=== PATIENT | female | born 1935 | race Caucasian/White ===

== ENCOUNTER 2016-06-26 12:45 | Day surgery (SDC) | payer MEDICARE, OTHER ==
[2016-06-26] MEDS ORDERED: LACTATED RINGERS 1,000 ML IV ONE ×2 (13:25→17:06)
[2016-06-26] MEDS ORDERED: fentaNYL 250 MCG/5 ML VIAL IVP ONE (16:48)
[2016-06-26] MEDS ORDERED: MIDAZOLAM 2 MG/2 ML VIAL IVP ONE (16:48)
== END 2016-06-26 12:46 | disposition home or self-care (01) ==
PROC: 0DJD8ZZ Inspection of Lower Intestinal Tract, Via Natural or Artificial Opening Endoscopic (ICD-10-PCS; principal; 2016-06-26 13:45)
DX: R19.4 Change in bowel habit (principal); K59.00 Constipation, unspecified; K64.8 Other hemorrhoids; I10 Essential (primary) hypertension; Z88.0 Allergy status to penicillin; Z88.2 Allergy status to sulfonamides; Z87.891 Personal history of nicotine dependence; Z90.710 Acquired absence of both cervix and uterus; Z82.5 Family history of asthma and other chronic lower respiratory diseases; Z80.0 Family history of malignant neoplasm of digestive organs; Z82.49 Family history of ischemic heart disease and other diseases of the circulatory system
CPT/HCPCS: 45378; J3010; J7120

== ENCOUNTER 2016-09-07 08:00 | Outpatient (CLI) | payer MEDICARE, OTHER ==
[2016-09-13 09:56] LABS: TEST RESULT REPORT (())
== END 2016-09-07 08:01 | disposition home or self-care (01) ==
LOC: LAB.R 08:00
PROVIDERS: ATTEND Internal Medicine
DX: R19.8 Other specified symptoms and signs involving the digestive system and abdomen (principal)
CPT/HCPCS: 81599; 83630; 87045; 87046; 87177; 87209; 87493

== ENCOUNTER 2016-10-21 08:00 | Outpatient (CLI) | payer MEDICARE, OTHER ==
[2016-10-26 07:51] LABS: TEST RESULT REPORT (())
[2016-10-27 09:51] LABS: TEST RESULT REPORT (())
== END 2016-10-21 08:01 | disposition home or self-care (01) ==
LOC: LAB.R 08:00
PROVIDERS: ATTEND Internal Medicine
DX: R19.7 Diarrhea, unspecified (principal)
CPT/HCPCS: 81599; 87045; 87046; 87493

== ENCOUNTER 2016-11-28 08:24 | Outpatient (CLI) | payer MEDICARE, OTHER ==
--- NOTE | 2016-11-29 12:06 | Mammography Report ---
DIGITAL SCREENING MAMMOGRAM: 11/28/2016 COMPARISON: 11/24/2015, 10/22/2014, 10/16/2013, 08/21/2012, 08/17/2011, 07/27/2011, 06/23/2010, 06/09, 06/21/2008, 06/13/2007. TECHNIQUE: Bilateral digital CC and MLO projections. FINDINGS: There are scattered fibroglandular densities. Stable benign calcifications. No dominant mass, architectural distortion, skin thickening, suspicious new microcalcifications or significant in terval change. IMPRESSION: NEGATIVE, BI-RADS 1. SUGGEST RETURN TO ROUTINE SCREENING IN 12 MONTHS. STANDARD QUALIFYING STATEMENTS 1. This examination was reviewed with the aid of Computer-Aided Detection (CAD). 2. A negative or benign imaging report should not delay biopsy if clinically suspicious findings are present. Consider surgical consultation if warranted. More than 5% of cancers are not identified by i maging. 3. Dense breasts may obscure an underlying neoplasm. JOB #: [id number] EXT JOB #:[id number]
== END 2016-11-28 08:25 | disposition home or self-care (01) ==
LOC: DI 08:24
PROVIDERS: ATTEND Internal Medicine
DX: Z12.31 Encounter for screening mammogram for malignant neoplasm of breast (principal)
CPT/HCPCS: 77067

== ENCOUNTER 2017-01-24 15:25 | Outpatient (CLI) | payer MEDICARE, OTHER ==
[2017-01-25 17:36] LABS: TEST RESULT REPORT
== END 2017-01-24 15:26 | disposition home or self-care (01) ==
LOC: LAB.R 15:25
PROVIDERS: ATTEND Internal Medicine Gastroenterology
DX: R19.7 Diarrhea, unspecified (principal)
CPT/HCPCS: 81599; 82705; 83630; 87493

== ENCOUNTER 2017-01-30 13:15 | Outpatient (CLI) | payer MEDICARE, OTHER ==
[2017-02-02 00:11] LABS: TEST RESULT REPORT
== END 2017-01-30 13:16 | disposition home or self-care (01) ==
LOC: LAB.R 13:15
PROVIDERS: ATTEND Internal Medicine Gastroenterology
DX: R19.7 Diarrhea, unspecified (principal)
CPT/HCPCS: 81599; 82705

== ENCOUNTER 2017-09-17 11:17 | Outpatient (CLI) | payer MEDICARE, OTHER | END 2017-09-17 11:18 | disposition home or self-care (01) | LOC: DI 11:17 | PROVIDERS: ATTEND Internal Medicine | DX: I48.91 Unspecified atrial fibrillation (principal); I34.0 Nonrheumatic mitral (valve) insufficiency; I07.1 Rheumatic tricuspid insufficiency; I37.1 Nonrheumatic pulmonary valve insufficiency; I51.7 Cardiomegaly; M54.30 Sciatica, unspecified side | CPT/HCPCS: 93306 ==

== ENCOUNTER 2017-09-23 08:44 | Outpatient (CLI) | payer MEDICARE, OTHER ==
[~2017-09-23 08:44] MED LIST: GADOBUTROL 7.5 MMOL/7.5 ML VIAL ONE
[2017-09-23] MEDS ORDERED: GADOBUTROL 7.5 MMOL/7.5 ML VIAL IVP ONE (09:28)
--- NOTE | 2017-09-23 14:29 | MRI Report ---
Procedure Date: 09/23/2017 Accession Number: [id number] / [id number] Procedure: MRI - Lumbar Spine W/WO CPT Code: FULL RESULT: EXAM: MRI LUMBAR SPINE WITHOUT AND WITH CONTRAST EXAM DATE: 09/23/2017 10:00 AM. CLINICAL HISTORY: 82-year-old female. SCIATICA. COMPARISONS: None. TECHNIQUE: Multiplanar, multisequence T1-weighted and fluid-sensitive sequences of the lumbar spine from T12 to S1 before and after administration of intravenous contrast. Other: None. IV contrast: 6 mL Gadavist. FINDINGS: Alignment: No scoliosis or spondylolisthesis. Spinal Canal: The conus terminates at L1. The conus medullaris and cauda equina are unremarkable. Bone Marrow: Five zof-emn-exyxwsp lumbar vertebral bodies are assumed. No gross fractures . A T1 and T2 hyperintense lesion within the L5 vertebral bodies nonspecific but favored to represent a benign hemangioma. No bone marrow replacement or abnormal enhancement. Disk Levels/Facets: T12-L1: Unremarkable. L1-L2: Mild disk height loss and desiccation. Mild diffuse disk bulge. No significant central canal or foraminal narrowing. L2-L3: Mild diffuse disk bulge. No significant central canal or foraminal narrowing. L3-L4: Mild disk height loss and desiccation. Moderate diffuse disk bulge. Mild bilateral facet arthropathy. Mild central canal narrowing. Evpg-et-uoayytva bilateral foraminal narrowing. Mild bilateral lateral recess narrowing with mass effect on traversing L4 nerves. L4-L5: Moderate disk height loss and desiccation. Moderate diffuse disk bulge. Moderate to severe bilateral facet arthropathy and ligamentum flavum hypertrophy. Awnt-zp-popetaiz central canal narrowing. Jwjt-xg-dcaqnyby bilateral foraminal narrowing. Moderate left lateral recess narrowing with mass effect on traversing left L5 nerve. L5-S1: Moderate disk height loss and desiccation. Moderate diffuse disk bulge. Moderate to severe bilateral facet arthropathy. Mild central canal narrowing. Moderate to severe right and tvas-qa-dltgnhmd left foraminal narrowing. 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 Spinal Canal: No enhancing masses within the spinal canal. No epidural abscess. Musculature: Normal. No edema, abnormal enhancement, or fatty atrophy. Other: The visualized retroperitoneum is unremarkable. IMPRESSION: 1. Moderate multilevel degenerative spondylosis, as detailed above and summarized below. Regarding the patient's symptoms, the most significant level is likely L5-S1. No evidence of acute fracture or malalignment. No abnormal enhancement. No bone marrow edema. No cord signal normality. 2. L3-L4 level demonstrates mild central canal narrowing. Ldvq-js-ctvwtplz bilateral foraminal narrowing. Mild bilateral lateral recess narrowing with mass effect on traversing L4 nerves. 3. L4-L5 level demonstrates zica-zt-jduwrdpb central canal narrowing. Pjip-vy-xvekqhxg bilateral foraminal narrowing. Moderate left lateral recess narrowing with mass effect on traversing left L5 nerve. 4. 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 Recommend correlation for right S1 radicular symptoms. 5. L5-S1 level demonstrates mild central canal narrowing. Moderate to severe right and glmt-uh-qkbvjebv left foraminal narrowing. Recommend correlation for right L5 vertical symptoms. Comment: The following findings are so common in adults without low back pain that while we report their presence, they must be interpreted with caution and in the context of the clinical situation. (Reference [place] et al, Spine 2001) Prevalence of findings in patients without low back pain: Disk degeneration (any evidence): 92% Disk desiccation/T2 signal loss: 83% Disk height loss: 56% Disk bulge: 64% Disk protrusion: 32% Annular tear/high intensity zone: 38% RADIA
== END 2017-09-23 08:45 | disposition home or self-care (01) ==
LOC: DI 08:44
PROVIDERS: ATTEND Internal Medicine
DX: M51.36 Other intervertebral disc degeneration, lumbar region (principal); M47.896 Other spondylosis, lumbar region; M51.37 Other intervertebral disc degeneration, lumbosacral region; M47.897 Other spondylosis, lumbosacral region; M48.061 Spinal stenosis, lumbar region without neurogenic claudication
CPT/HCPCS: 72158; A9585

== ENCOUNTER 2017-10-09 10:42 | Outpatient (CLI) | payer MEDICARE, OTHER ==
--- NOTE | 2017-10-09 11:32 | Ultrasound Report ---
Procedure Date: 10/09/2017 Accession Number: [id number] / [id number] Procedure: US - Abdomen Limited CPT Code: FULL RESULT: EXAM: Abdomen Limited DATE: 10/09/2017 11:24 AM CLINICAL HISTORY: ELEVATED ALT COMPARISON: None. TECHNIQUE: Real-time scanning was performed with static images obtained. FINDINGS: Liver: Normal in size and echotexture. At least 15 cm. Main portal vein flow: Hepatopetal. Gallbladder: Normal. No stones, wall thickening, or sonographic Villafuerte's sign. Biliary System: Common bile duct measures 6 mm. No intrahepatic or extrahepatic ductal dilatation. Pancreas: Visualized portion is unremarkable. Kidneys: Right: 10.4 cm longitudinally. Normal. No contour-deforming mass, stones, or hydronephrosis. The IVC is unremarkable on grayscale ultrasound. IMPRESSION: Normal study. RADIA
== END 2017-10-09 10:43 | disposition home or self-care (01) ==
LOC: DI 10:42
PROVIDERS: ATTEND Internal Medicine
DX: R74.8 Abnormal levels of other serum enzymes (principal)
CPT/HCPCS: 76705

== ENCOUNTER 2017-11-05 16:38 | Outpatient (CLI) | payer MEDICARE, OTHER ==
--- NOTE | 2017-11-06 05:12 | XRAY Report ---
Reason: R HUMERUS PAIN Procedure Date: 11/05/2017 Accession Number: [id number] / [id number] Procedure: XR - Humerus RT CPT Code: FULL RESULT: EXAM: RIGHT HUMERUS RADIOGRAPHY EXAM DATE: 11/05/2017 04:58 PM. CLINICAL HISTORY: Pain COMPARISON: None. TECHNIQUE: 2 views. FINDINGS: Bones: Normal. No fractures or bone lesions. Joints: Mild degenerative changes of the glenohumeral joint. Soft Tissues: Normal. No soft tissue swelling. 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 No evidence of humeral fracture. RADIA
== END 2017-11-05 16:39 | disposition home or self-care (01) ==
LOC: DI 16:38
PROVIDERS: ATTEND Internal Medicine
DX: M19.011 Primary osteoarthritis, right shoulder (principal)

== ENCOUNTER 2017-12-11 14:17 | Outpatient (CLI) | payer MEDICARE, OTHER | END 2017-12-11 14:18 | disposition critical access hospital (66) | LOC: EMS 14:17 | PROVIDERS: ATTEND Surgery | DX: R41.0 Disorientation, unspecified (principal); R47.01 Aphasia | CPT/HCPCS: A0425; A0429 ==

== ENCOUNTER 2017-12-11 14:39 | Inpatient (IN) | payer MEDICARE, OTHER ==
[2017-12-11] MEDS ORDERED: SODIUM CHLORIDE 0.9% 1,000 ML IV ONE ×5 (14:45→20:43)
--- NOTE | 2017-12-11 14:49 | ED Physician Documentation ---
History of Present Illness - Stated complaint Stated Complaint: UNRESPONSIVE - History obtained from History obtained from: EMS - History of Present Illness Timing: Unknown Improved by: nothing Worsened by: nothing - Additonal information Additional information: Patient is an 82-year-old female who was found down today at home. Her friends last checked on her a few days ago when she was feeling nauseated. She missed a game of bridge today so they went to her house and found her unresponsive on the floor. EMS arrived and brought her to the emergency department. She initially was tachycardic and hypotensive. Patient is unable to speak and does have a gaze deviation to the left. 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 HEENT: Cataracts - Present Medications Home Medications: Ambulatory Orders Medication Instructions Recorded Confirmed Losartan [Cozaar] 50 mg PO DAILY 06/26/16 12/11/17 Apixaban [Eliquis] 5 mg PO BID 12/11/17 12/11/17 Fesoterodine Fumarate [Toviaz] 4 mg PO DAILY 12/11/17 12/11/17 Metoprolol Tartrate 100 mg PO QPM 12/11/17 12/11/17 Metoprolol Tartrate 150 mg PO DAILY 12/11/17 12/11/17 Zolpidem Tartrate 5 mg PO QPM PRN 12/11/17 12/11/17 - Allergies Allergies/Adverse Reactions: Allergies Allergy/AdvReac Type Severity Reaction Status Date / Time Penicillins Allergy Severe Respiratory Verified 06/14/13 08:35 Sulfa (Sulfonamide AdvReac Severe Rash Verified 06/14/13 08:35 Antibiotics) contrast dyes Allergy Severe Hives Uncoded 06/14/13 08:35 - Social History Does the pt smoke?: No Smoking Status: Never smoker Does the pt drink ETOH?: Yes Does the pt have substance abuse?: No - Immunizations Immunizations are current?: Yes PD ED PE NORMAL - Vitals Vital signs reviewed: Yes - General General: Other (alert, non-verbal) - HEENT HEENT: PERRL, Other (Unable to follow commands) - Neck Neck: Other (no stepoff or deformity) - Cardiac Cardiac: RRR - Respiratory Respiratory: No respiratory distress, Clear bilaterally - Abdomen Abdomen: Soft, Non tender, Non distended - Back Back: Other (no step off or deformity.) - Derm Derm: Other (cool, dry skin) - Extremities Extremities: No deformity - Neuro Neuro: Other (alert) Eye Opening: Spontaneous Motor: Withdraws to Pain Verbal: None GCS Score: 9 Results - Vitals Vitals: Oxygen O2 Source Room air - EKG (time done) 1511 Rate: Rate (enter#) (174) Rhythm: Atrial fibrillation (w RVR) [place]: LAD QRS: Normal Ischemia: Non specific changes - Rads (name of study) head CT Radiology: Prelim report reviewed, EMP read contemporaneously, See rad report (No acute abnormality) cervical spine CT Radiology: Prelim report reviewed, EMP read contemporaneously, See rad report (No acute abnormality, possible atlantooccipital subluxation, but likely positional) Chest x-ray Radiology: Prelim report reviewed, EMP read contemporaneously, See rad report (Cardiomegaly without acute disease) PD MEDICAL DECISION MAKING - ED course Complexity details: reviewed old records, reviewed results, re-evaluated patient, considered differential, d/w corporate learning consultant ED course: Patient is an 82-year-old female who was found down today. Unknown downtime. No acute findings on head CT. She is in atrial fibrillation with rapid ventricular response, unknown what her home medications are. After a negative head CT she was started on a diltiazem drip for rate control. Given several liters of IV fluid for possible early sepsis from a UTI. Also given broad- spectrum antibiotics and blood cultures were drawn. I placed an 18-gauge IV in the left deep brachial vein under ultrasound guidance that is working very well. Unclear etiology of her symptoms, possible stroke leading to inability to get up leading to her early urosepsis? Discussed the case with Dr. Esteban, hospitalist who accepts This document was made in part using voice recognition software. While efforts are made to proofread this document, sound alike and grammatical errors may o ccur. - Critical Care Time(min): 50 Time Includes: Direct patient care Data interpretation: See progress note Procedures included in critical care time: See progress note Procedures excluded from critical care time: See progress note - Sepsis Event Vital Signs: Oxygen O2 Source Room air Departure - Departure Disposition: 66 [facility] DC/Xfer Clinical Impression: Atrial fibrillation with RVR Altered mental status Qualifiers: Altered mental status type: disorientation Qualified Code(s): R41.0 - Disorientation, unspecified UTI (urinary tract infection) Qualifiers: Urinary tract infection type: site unspecified Hematuria presence: without hematuria Qualified Code(s): N39.0 - Urinary tract infection, site not specified Rhabdomyolysis Qualifiers: Rhabdomyolysis type: non-traumatic Qualified Code(s): M62.82 - Rhabdomyolysis Condition: Serious Discharge Date/Time: 12/11/17 18:25
[2017-12-11] MEDS ORDERED: diltiaZEM INJ 5 MG/ML VIAL IVP STA (15:31)
[2017-12-11 15:33] LABS: BASOPHILS % (AUTO) 0.2 %; LYMPHOCYTES % (AUTO) 1.1 %; MEAN CORPUSCULAR HEMOGLOBIN 34.3 pg (27.0-31.0); MEAN CORPUSCULAR HGB CONC 34.4 g/dL (32.0-36.0); MEAN PLATELET VOLUME 7.7 fL (7.9-10.8); MONOCYTES % (AUTO) 7.2 %; NEUTROPHILS % (AUTO) 91.5 %; PLT - PLATELET COUNT 198 10^3/uL (130-450); RED BLOOD COUNT 4.38 10^6/uL (4.20-5.40); RED CELL DISTRIBUTION WIDTH 14.7 % (12.0-15.0); WHITE BLOOD COUNT 20.9 x10^3/uL (4.8-10.8)
[2017-12-11 15:34] LABS: ABNORMAL LYMPHS % (MANUAL) 0 %; LYMPHOCYTES % (MANUAL) 0 %
[2017-12-11 15:37] LABS: INR 1.2 (0.8-1.2); PT - PROTHROMBIN TIME 13.7 secs (9.9-12.6)
[2017-12-11 15:46] LABS: MUDS CUTOFF CONCENTRATIONS CUTOFF CONC BELOW:
[2017-12-11 15:48] LABS: BILIRUBIN,URINE SMALL (NEGATIVE); GLUCOSE, URINE (UA) NEGATIVE (NEGATIVE); KETONES,URINE (UA) 15 mg/dL (NEGATIVE); LEUKOCYTE ESTERASE, URINE SMALL (NEGATIVE); NITRITE,URINE NEGATIVE (NEGATIVE); OCCULT BLOOD,URINE LARGE (NEGATIVE); PROTEIN,URINE 100 mg/dL (NEGATIVE); UROBILINOGEN,URINE 0.2 (NORMAL) E.U./dL (NORMAL)
[2017-12-11 15:50] LABS: CLARITY,URINE CLOUDY (CLEAR)
[2017-12-11 15:56] LABS: BACTERIA,URINE Many /HPF (None Seen); RBC,URINE TNTC /HPF (0-5); SQUAMOUS EPITHELIAL CELL,UR RARE Squamous (<= Few)
[2017-12-11 15:57] LABS: AMPHETAMINE SCREEN,URINE NEGATIVE (NEGATIVE); BENZODIAZEPINES SCREEN, URINE NEGATIVE (NEGATIVE); COCAINE SCREEN URINE NEGATIVE (NEGATIVE); METHADONE SCREEN, URINE NEGATIVE (NEGATIVE); METHAMPHETAMINES SCREEN, URINE NEGATIVE (NEGATIVE); OPIATE SCREEN, URINE NEGATIVE (NEGATIVE); OXYCODONE SCREEN, URINE NEGATIVE (NEGATIVE); PROPOXYPHENE SCREEN, URINE NEGATIVE (NEGATIVE); TRICYCLIC ANTIDEPRESSANT,URINE NEGATIVE (NEGATIVE)
[2017-12-11 16:02] LABS: BAND NEUTROPHILS % (MANUAL) 3 %; NEUTROPHILS # (MANUAL) 19.9 10^3/uL (1.5-6.6); NEUTROPHILS % (MANUAL) 92 %; PLATELET ESTIMATE, MANUAL NORMAL (130-450,000) (NORMAL); PLATELET MORPHOLOGY NORMAL APPEARANCE (NORMAL); RBC MORPHOLOGY (MULTIPLE) NORMAL APPEARANCE (NORMAL)
[2017-12-11 16:03] LABS: ACETAMINOPHEN < 10 ug/mL (10-30); ALBUMIN 3.9 g/dL (3.2-5.5); ALBUMIN/GLOBULIN RATIO 1.6 (1.0-2.2); ALKALINE PHOSPHATASE 54 IU/L (42-121); ALT ALANINE AMINOTRANSFERASE 45 IU/L (10-60); AST ASPARTATE AMINOTRANSFERASE 134 IU/L (10-42); BILIRUBIN,TOTAL 2.2 mg/dL (0.2-1.0); BUN - BLOOD UREA NITROGEN 25 mg/dL (6-20); CALCIUM 8.9 mg/dL (8.5-10.3); CARBON DIOXIDE - CO2 24 mmol/L (21-32); CHLORIDE 97 mmol/L (101-111); CREATININE 0.9 mg/dL (0.4-1.0); DIFFERENTIAL COMMENT MANUAL DIFFERENTIAL; GFR - MDRD 60 (>89); GLUCOSE 128 mg/dL (70-100); LIPASE 22 U/L (22-51); SALICYLATE < 6.0 mg/dL; SODIUM 135 mmol/L (135-145); TOTAL PROTEIN 6.3 g/dL (6.7-8.2)
[2017-12-11 16:04] LABS: CK- CREATINE KINASE 3446 IU/L (22-269)
[2017-12-11] MEDS ORDERED: diphenhydrAMINE INJ 50 MG/ML VIAL IVP STA (16:06)
[2017-12-11] MEDS ORDERED: VANCOMYCIN INJ 1 GM in SODIUM CHLORIDE 0.9% 500 ML IV STA (16:07)
[2017-12-11] MEDS ORDERED: CEFEPIME 2 GM in SODIUM CHLORIDE 0.9% MINIBAG 100 ML IV STA (16:07)
[2017-12-11] MEDS: diltiaZEM INJ 125 MG in DEXTROSE 5% 100 ML IV STA (16:10)
--- NOTE | 2017-12-11 16:18 | CT Report ---
Reason: found on ground, ALOC Procedure Date: 12/11/2017 Accession Number: [id number] / [id number] Procedure: CT - Cervical Spine W/O CPT Code: FULL RESULT: EXAM: CT HEAD. CT SCAN OF THE CERVICAL SPINE. EXAM DATE: 12/11/2017 03:10 PM. CLINICAL HISTORY: Found on ground, a loss of consciousness. COMPARISON: CT head without 06/14/2013 9:[address] cervical spine without 12/11/2017 3:04 PM. TECHNIQUE: Noncontrast axial sections through the head and cervical spine. Reformats: Sagittal and coronal of the head, coronal and sagittal of the cervical spine. In accordance with CT protocol optimization, one or more of the following dose reduction techniques were utilized for this exam: automated exposure control, adjustment of mA and/or KV based on patient size, or use of iterative reconstructive technique. FINDINGS CT HEAD: Parenchyma: No intraparenchymal hemorrhage. No evidence of mass, midline shift, or CT findings of infarction. [place]-white differentiation is distinct. Extraaxial Spaces: Normal for age. No subdural or epidural collections identified. Ventricles: Normal in size and position. Sinuses and orbits: Imaged paranasal sinuses, orbits, and mastoids show no significant abnormality. Bones: No osseous fracture. Other: Extracranial right parietal superficial soft tissue swelling. FINDINGS CT CERVICAL SPINE: Alignment: Alignment is difficult to evaluate due to patient positioning, the neck is turned to the left and there is dextroconvex cervical scoliosis which is most likely positional. There is a 1-2 mm anterolisthesis of C4 on C5 which is felt to be related to degenerative change. The atlantooccipital relationship is preserved. Questionable C1-C2 rotatory malalignment is felt to more likely be positional though traumatic rotatory subluxation cannot be excluded on this study. Bones: No fracture or bone lesion. Interspace Levels/Facets: There are multilevel degenerative changes including complete disk space height loss and osteophytosis at C5-C6. Spinal Canal: Normal. Musculature: Normal. No fatty atrophy. Other: The paravertebral and prevertebral soft tissues are unremarkable. The lung apices are clear. IMPRESSION: Head CT: Negative. Cervical Spine CT: No definite fracture or listhesis. Rotatory malalignment of C1 on C2 is felt to more likely be positional. Given that the patient was unable to assume a neutral position, rotatory subluxation cannot be excluded by this CT. CRITICAL RESULT: The findings were discussed with Dr. Becker on 12/11/2017 at approximately 3:30 p.m. TRAE
[2017-12-11] MEDS ORDERED: PROCHLORPERAZINE 10 MG/2 ML VIAL IVP PRN (17:13)
[2017-12-11] MEDS ORDERED: ONDANSETRON 4 MG/2 ML VIAL IVP PRN (17:13)
[2017-12-11] MEDS ORDERED: ONDANSETRON ODT 4 MG TABLET TL PRN (17:13)
[2017-12-11] MEDS ORDERED: oxyCODONE 5 MG TABLET PO PRN (17:13)
[2017-12-11] MEDS ORDERED: ACETAMINOPHEN 325 MG TABLET PO PRN (17:13)
--- NOTE | 2017-12-11 17:29 | HISTORY & PHYSICAL EXAMINATION ---
Chief Complaint - Chief Complaint Chief Complaint: Found unconscious by her friends History of Present Illness - Admitted From Admitted From:: Home/ER - History Obtained From Records Reviewed: [facility] History obtained from: [facility] and Dr. Bell. Dr. Pyle unavailable, percussion instructor Exam Limitations: Patient is a limited response, left gaze deviation, grabbing at things not - History of Present Illness HPI Comment/Other: She is an elderly female who lives alone in her own home. As far as I can tell she lives independently. She lives alone. She was last seen 2 days ago by her friends. At that time she was feeling a little bit nauseated. When she missed a game of bridge today, her friends went to her house to check on her. She was found down on her floor, unresponsive. EMS brought her to the emergency depa rtment. She was tachycardic, hypotensive. She was unable to speak and had a left gaze deviation. Dr. Bell gave her 2 L of IV fluids, antibiotics. CT of the head is negative. He is found her to have possible stroke, atrial fibrillation with RVR, rhabdomyolysis, dehydration, and a UTI. She is requiring a diltiazem drip. She will not be transferred to ICU. History is limited by the patient's lack of response. There are no identifiable family members. I did call Dr. Pyle who is on-call for herself. Hopefully she will call in update me on the patient's history. Pharmacy was able to update her medication list by cross-referencing pharmacy records, insurance records, and cardiology office notes After the patient was transferred to the ICU, daughter showed up about an hour and a half later. She describes her mom is completely independent. Very active and doing everything on her own. Lives alone[place] up until last year. Last summer she had a great time. This summer she throughout her back and she has had terrible back pain since. She has not played golf. She has had one back injection. She subsequently got diagnosed with atrial fibrillation about a month ago. Has been on blood thinners and medications for that since that time. She is followed by a brim ironer hand in [place]. Daughter does not know the name. She did have a stress test and as far she knows the stress test was negative. As far she knows her mom is taking as far she knows her mom is taking her medications on a regular basis. She has had some issues with taking these medications because this made her nauseated she did not like how she felt on them. 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 She use to drink about 1 glass of wine a day and stopped in the last 2-3 months because of the medications for atrial fibrillation. - Substance History Use: Uses substance without health or social issues: NONE Abuse: Recurrent use of substance despite neg consequences: NONE Dependence: Experiences withdrawal or developed tolerances: NONE - POLST Patient has POLST: No POLST Status: Full Code Meds/Allgy - Home Medications Home Medications: Ambulatory Orders Medication Instructions Recorded Confirmed Losartan [Cozaar] 50 mg PO DAILY 06/26/16 12/11/17 Apixaban [Eliquis] 5 mg PO BID 12/11/17 12/11/17 Fesoterodine Fumarate [Toviaz] 4 mg PO DAILY 12/11/17 12/11/17 Metoprolol Tartrate 100 mg PO QPM 12/11/17 12/11/17 Metoprolol Tartrate 150 mg PO DAILY 12/11/17 12/11/17 Zolpidem Tartrate 5 mg PO QPM PRN 12/11/17 12/11/17 - Allergies Allergies/Adverse Reactions: Allergies Allergy/AdvReac Type Severity Reaction Status Date / Time Penicillins Allergy Severe Respiratory Verified 06/14/13 08:35 Sulfa (Sulfonamide AdvReac Severe Rash Verified 06/14/13 08:35 Antibiotics) contrast dyes Allergy Severe Hives Uncoded 06/14/13 08:35 Review of Systems - Other Findings Other Findings: Unable to be obtained in this patient who has encephalopathy, and possible stroke Prior Level of Functionality: Unknown per the patient's history. Dr. Becker states that her friends described her as independent, driving, living alone. Exam - Vital Signs Reviewed Vital Signs: Yes Vital Signs: Vital Signs x48h Temp Pulse Resp BP Pulse Ox 12/11/17 16:37 151 H 23 108/92 H 100 12/11/17 16:27 162 H 26 H 134/111 H 12/11/17 15:51 145 H 25 H 142/105 H 99 12/11/17 15:24 36.5 C 178 H 20 141/122 H 90 L 12/11/17 15:14 174 H 12/11/17 14:47 36.6 C 20 177/144 H 100 - Physical Exam General Appearance: positive: Lethargic, Other Eyes Bilateral: positive: Other (left eyelid initially wouldn't open and gazes to left. Now opening slightly. right eye pupil nml.) ENT: positive: Dry mucous membranes, Other (dry lips.) Neck: positive: No JVD. negative: Stiff neck, Carotid bruit Respiratory: positive: Chest non-tender, Rales. negative: Wheezes, Rhonchi Cardiovascular: positive: Irregularly irregular, Tachycardia, Other (hypotension) Peripheral Pulses: positive: 1+ Abdomen: positive: Non-tender (as manifested by no grimacing, no furrowed brow with palpation), No organomegaly, Nml bowel sounds, No distention Skin: positive: Warm, Pallor Extremities: positive: Full ROM, No pedal edema Neurologic/Psychiatric: positive: Disoriented to person, Disoriented to place, D isoriented to time, Other (left gaze deviation, not moving right body well. struggles to pull away with left arm and hand) Conclusion/Plan - Problem List (1) Altered mental status Conclusion/Plan: She appears to have left gaze neglect, grabbing at things that are not there, and had to be restrained in the emergency room for her own sake. She has atrial fibrillation. She is on Eliquis. CT of the head is negative. However, this poor unfortunate female could still have had an embolic stroke then may have fallen down because of weakness, and then developed urinary incontinence, fecal incontinence with a UTI and rhabdo. She will be evaluated as a possible stroke. Urinary tract infection and rhabdo with dehydration will be treated as well. May be some of her neurologic symptoms will resolve if not completely improve. Plan: Inpatient status IV fluids IV antibiotics MRI of the head since CT was negative Chest x-ray has been ordered. Has not been obtained yet. Will review once done. Phone call out to Dr. Pyle. Will verify past medical history and past functional status after conversation. Qualifiers: Altered mental status type: disorientation Qualified Code(s): R41.0 - Disorientation, unspecified (2) UTI (urinary tract infection) Conclusion/Plan: She is allergic to penicillin and is felt to have had severe respiratory distress from her allergy response. [place] antibiotic Guide recommend ca rbpenem as single agent therapy. But because of her allergy will use alternate regimen of ciprofloxacin. Adjust therapy on the basis of culture results. Qualifiers: Urinary tract infection type: site unspecified Hematuria presence: without hematuria Qualified Code(s): N39.0 - Urinary tract infection, site not spec ified (3) Rhabdomyolysis Conclusion/Plan: Hydrate with 0.9 normal saline. Recheck daily. Recheck renal function daily. Qualifiers: Rhabdomyolysis type: non-traumatic Qualified Code(s): M62.82 - Rhabd omyolysis (4) Dehydration Conclusion/Plan: As manifested by dryness and poor oral mucosa integrity. Creatinine is stable. BUN is elevated. Treat with IV fluids for hydration until she can eat on her own. (5) Atrial fibrillation with RVR Conclusion/Plan: On anticoagulation in the form of Eliquis. Her last prescription was filled in September 2017 for a 90-day supply. She is now on a diltiazem drip to control her r ate. Plan: Transfer to ICU from emergency room. Transition to oral diltiazem or her usual oral metoprolol once rate is adequately controlled and her fluid status is stable with hydration.Recheck troponin in 6 hours. (6) Abnormal CT scan, neck Conclusion/Plan: Will discuss with radiology with the next step is with regards to the rotation and doing need to be concerned. While her signs on physical exam show lateralization and left gaze deviation, neck does not appear stiff or painful. (7) Hypokalemia Conclusion/Plan: supplement IV and will also give 2 grams Mg. - Lab Results Fish Bones: 12/11/17 15:20 12/11/17 15:20 - Diagnostic Imaging Results Diagnostic Imaging Results: positive: Final report reviewed Diagnostic Imaging Results Comments: CT HEAD. CT SCAN OF THE CERVICAL SPINE. EXAM DATE: 12/11/2017 03:10 PM. CLINICAL HISTORY: Found on ground, a loss of consciousness. COMPARISON: CT head without 06/14/2013 9:[address] cervical spine without 12/11/2017 3:04 PM. TECHNIQUE: Noncontrast axial sections through the head and cervical spine. Reformats: Sagittal and coronal of the head, coronal and sagittal of the cervical spine. In accordance with CT protocol optimization, one or more of the following dose reduction techniques were utilized for this exam: automated exposure control, adjustment of mA and/or KV based on patient size, or use of iterative reconstructive technique. FINDINGS CT HEAD: Parenchyma: No intraparenchymal hemorrhage. No evidence of mass, midline shift, or CT findings of infarction. Tijer[place]-white differentiation is distinct. Extraaxial Spaces: Normal for age. No subdural or epidural collections identified. Ventricles: Normal in size and position. Sinuses and orbits: Imaged paranasal sinuses, orbits, and mastoids show no significant abnormality. Bones: No osseous fracture. Other: Extracranial right parietal superficial soft tissue swelling. FINDINGS CT CERVICAL SPINE: Alignment: Alignment is difficult to evaluate due to patient positioning, the neck is turned to the left and there is dextroconvex cervical scoliosis which is most likely positional. There is a 1-2 mm anterolisthesis of C4 on C5 which is felt to be related to degenerative change. The atlantooccipital relationship is preserved. Questionable C1-C2 rotatory malalignment is felt to more likely be positional though traumatic rotatory subluxation cannot be excluded on this study. Bones: No fracture or bone lesion. Interspace Levels/Facets: There are multilevel degenerative changes including complete disk space height loss and osteophytosis at C5-C6. Spinal Canal: Normal. Musculature: Normal. No fatty atrophy. Other: The paravertebral and prevertebral soft tissues are unremarkable. The lung apices are clear. IMPRESSION: Head CT: Negative. Cervical Spine CT: No definite fracture or listhesis. Rotatory malalignment of C1 on C2 is felt to more likely be positional. Given that the patient was unable to assume a neutral position, rotatory subluxation cannot be excluded by this CT. CRITICAL RESULT: The findings were discussed with Dr. Becker on 12/11/2017 at approximately 3:30 p.m. - EKG Results EKG Interpreted Independently: No EKG Comparison: Unchanged from prior EKG Core Measures - Anticipated LOS I expect patient to be DC'd or transferred within 96 hours.: Yes - DVT/VTE - Prophylaxis VTE/DVT Device ordered at admit?: Yes - Stroke - Rehab Assessment Rehab services assessment to be ordered?: Yes
--- NOTE | 2017-12-11 17:58 | XRAY Report ---
Reason: aloc Procedure Date: 12/11/2017 Accession Number: [id number] / [id number] Procedure: XR - Chest 1 View X-Ray CPT Code: 49572 FULL RESULT: EXAM: CHEST RADIOGRAPHY EXAM DATE: 12/11/2017 05:48 PM. CLINICAL HISTORY: Aloc. COMPARISON: None. TECHNIQUE: 1 view. FINDINGS: Lungs/Pleura: Mild interstitial prominence. No localized infiltrate, consolidation, effusion, or pneumothorax. Probable artifact versus calcified nodule projecting into the left midlung zone. Mediastinum: Moderate to marked cardiomegaly. Upper lobe vessels not distended; supine patient. Other: None. IMPRESSION: Cardiomegaly. No definite acute disease. RADIA
[2017-12-11] MEDS ORDERED: CIPROFLOXACIN 400 MG/200 ML 200 ML IV SCH (18:00)
[2017-12-11] MEDS ORDERED: MAGNESIUM SULFATE 2 GRAM 2 GM/50 ML BAG IV ONE (19:16)
[2017-12-11] MEDS: SODIUM CHLORIDE 0.9% 1,000 ML IV SCH (19:42)
[2017-12-11] MEDS: METOPROLOL 5 MG/5 ML VIAL IVP PRN (20:00)
[2017-12-11] MEDS ORDERED: POTASSIUM CHLOR 10 MEQ/100 ML 10 MEQ/100 ML BAG IV SCH (20:00)
[2017-12-11] MEDS ORDERED: APIXABAN 5 MG TABLET PO SCH (21:00)
[2017-12-11] MEDS ORDERED: ENOXAPARIN 60 MG/0.6 ML SYRINGE SUBQ SCH (21:00)
[2017-12-11] MEDS ORDERED: METOPROLOL TARTRATE 50 MG TABLET PO SCH (21:00)
[2017-12-11] MEDS ORDERED: LORazepam 2 MG/ML VIAL IVP STA (22:17)
[2017-12-12] MEDS: ENOXAPARIN 60 MG/0.6 ML SYRINGE SUBQ SCH ×2 (00:10→12:12)
[2017-12-12] MEDS: diltiaZEM INJ 125 MG in DEXTROSE 5% 100 ML IV STA ×2 (00:26→00:34)
[2017-12-12] MEDS: diltiaZEM INJ 125 MG in DEXTROSE 5% 100 ML IV SCH ×2 (00:34→17:00)
[2017-12-12] MEDS: CIPROFLOXACIN 400 MG/200 ML 200 ML IV SCH ×2 (00:53→12:15)
[2017-12-12] MEDS ORDERED: SODIUM CHLORIDE 0.9% 500 ML IV ONE ×2 (01:14→01:32)
[2017-12-12] MEDS: POTASSIUM CHLOR 10 MEQ/100 ML 10 MEQ/100 ML BAG IV SCH ×5 (02:05→06:24)
[2017-12-12] MEDS: MORPHINE 2 MG/ML CARPUJECT IVP PRN ×2 (02:31→19:46)
[2017-12-12] MEDS: SODIUM CHLORIDE FLUSH 0.9% 10 ML SYRINGE IVP SCH ×4 (02:34→19:46)
[2017-12-12] MEDS: SODIUM CHLORIDE FLUSH 0.9% 10 ML SYRINGE IVP PRN ×3 (02:34→19:46)
[2017-12-12] MEDS ORDERED: LORazepam 2 MG/ML VIAL IVP STA (06:00)
[2017-12-12 06:01] LABS: BASOPHILS % (AUTO) 0.1 %; HGB - HEMOGLOBIN 11.9 g/dL (12.0-16.0); LYMPHOCYTES # (AUTO) 0.5 10^3/uL (1.5-3.5); LYMPHOCYTES % (AUTO) 3.6 %; MEAN CORPUSCULAR HGB CONC 33.3 g/dL (32.0-36.0); MEAN CORPUSCULAR VOLUME 102.1 fL (81.0-99.0); MEAN PLATELET VOLUME 7.5 fL (7.9-10.8); MONOCYTES # (AUTO) 1.3 10^3/uL (0.0-1.0); MONOCYTES % (AUTO) 10.4 %; NEUTROPHILS # (AUTO) 10.9 10^3/uL (1.5-6.6); NEUTROPHILS % (AUTO) 85.9 %; PLT - PLATELET COUNT 147 10^3/uL (130-450); RED CELL DISTRIBUTION WIDTH 15.3 % (12.0-15.0); WHITE BLOOD COUNT 12.7 x10^3/uL (4.8-10.8)
[2017-12-12 06:10] LABS: CALCIUM 7.3 mg/dL (8.5-10.3); CREATININE 0.6 mg/dL (0.4-1.0); VBG PH 7.361 (7.31-7.41)
[2017-12-12] MEDS: METOPROLOL 5 MG/5 ML VIAL IVP PRN ×2 (06:14→19:40)
[2017-12-12 06:24] LABS: MAGNESIUM 2.4 mg/dL (1.7-2.8); PHOSPHORUS 1.9 mg/dL (2.5-4.6)
[2017-12-12] MEDS: SODIUM CHLORIDE 0.9% 1,000 ML IV SCH ×2 (07:00→22:09)
[2017-12-12] MEDS ORDERED: POTASSIUM PHOSPHATE 15 MMOL in SODIUM CHLORIDE 0.9% 250 ML IV ONE (08:00)
[2017-12-12] MEDS ORDERED: METOPROLOL TARTRATE 50 MG TABLET PO SCH (09:00)
[2017-12-12] MEDS ORDERED: LOSARTAN 50 MG TABLET PO SCH (09:00)
[2017-12-12] MEDS ORDERED: LORazepam 2 MG/ML VIAL IVP ONE (09:30)
--- NOTE | 2017-12-12 11:16 | XRAY Report ---
Reason: PICC Liine placement Procedure Date: 12/12/2017 Accession Number: [id number] / [id number] Procedure: XR - Chest for Line Placement CPT Code: FULL RESULT: EXAM: CHEST RADIOGRAPHY EXAM DATE: 12/12/2017 10:40 AM. CLINICAL HISTORY: PICC line placement. COMPARISON: Chest 1 view 12/11/2017 5:36 PM. TECHNIQUE: 1 view. FINDINGS: Lungs/Pleura: No focal opacities evident. No pleural effusion. No pneumothorax. Mediastinum: Within exam limitations, the cardiomediastinal contour is normal. Other: The left PICC terminates at the superior cavoatrial junction/in the superior right atrium. IMPRESSION: Interval PICC placement. RADIA
--- NOTE | 2017-12-12 12:12 | MRI Report ---
Reason: NEW LEFT GAZE DEVIATION, AMS AFIB Procedure Date: 12/12/2017 Accession Number: [id number] / [id number] Procedure: MRI - Brain W/O CPT Code: FULL RESULT: EXAM: MRI BRAIN WITHOUT CONTRAST EXAM DATE: 12/12/2017 11:34 AM. CLINICAL HISTORY: New left gaze deviation, altered mental status. Atrial fibrillation. COMPARISON: CT scan of the head 12/11/2017, 06/14/2013. TECHNIQUE: Multiplanar, multisequence T1-weighted and fluid-sensitive MR sequences of the brain were performed. Sequences optimized for fast scan protocol evaluation. Other: None. IV Contrast: None. FINDINGS: (Study is limited by motion artifact.) Brain Volume: Age-related atrophy is present. Parenchyma/Dura: No mass, acute infarct or hemorrhage. Mild confluent periventricular with patchy deep white matter T2/FLAIR bright signal is seen in the cerebral hemispheres. Ventricles/Cisterns: No hydrocephalus. No abnormal extra-axial fluid collection or hemorrhage. Orbits: Unremarkable. Note is made of bilateral lens removal. Sella Turcica: The pituitary gland, cavernous sinuses, suprasellar cistern and optic chiasm are unremarkable. Note is made of a partially empty sella turcica. IAC: Symmetric and unremarkable. Vasculature: Normal signal flow void is seen in the major arterial structures at the skull base. Sinuses: No acute appearing sinus disease. Bones: No focal pathologic appearing marrow signal changes. Other: Mild subgaleal swelling is seen overlying the high posterior right parietal convexity. IMPRESSION: 1. No acute intracranial abnormality. No acute infarct, mass or hemorrhage. 2. Mild white matter T2/FLAIR bright signal is seen. This is nonspecific, but typically secondary to small vessel ischemic change. 3. Subgaleal soft tissue swelling centered over the high posterior right parietal convexity. RADIA
--- NOTE | 2017-12-12 16:42 | CT Report ---
Reason: prev abnl CT spine Procedure Date: 12/12/2017 Accession Number: [id number] / [id number] Procedure: CT - Cervical Spine W/O CPT Code: FULL RESULT: EXAM: CT CERVICAL SPINE WITHOUT CONTRAST DATE: 12/12/2017 04:22 PM. HISTORY: Prev abnl CT spine. COMPARISONS: CERVICAL SPINE W/O 12/11/2017 3:04 PM. TECHNIQUE: Thin-section axial images were acquired of the cervical spine without contrast. Post-processing: Coronal and sagittal reformats. Other: None. In accordance with CT protocol optimization, one or more of the following dose reduction techniques were utilized for this exam: automated exposure control, adjustment of mA and/or KV based on patient size, or use of iterative reconstructive technique. FINDINGS: Alignment: 1-2 mm anterior subluxation C4 on C5 unchanged. Slight posterior subluxation C5 on C6 unchanged. Alignment at the C1-C2 level now appears normal. Bones: No fracture or bone lesion. Interspace Levels/Facets: C1-C2: Mild degenerative change at the atlantodental articulation. Lateral mass articulations are unremarkable. C2-C3: Broad-based central disk protrusion with mild effacement of the thecal sac. C3-C4: Moderate right and mild left facet arthropathy. Small right uncinate hypertrophy. Mild right foraminal narrowing. C4-C5: Moderate left-sided degenerative facet arthropathy with mild left foraminal narrowing. C5-C6: Disk height loss with some endplate sclerosis and marginal osteophytes. Annular disk bulge. Moderate left and mild right facet arthropathy. Mild central canal stenosis. Mild bilateral foraminal narrowing. C6-C7: Moderate left-sided degenerative facet arthropathy. C7-T1: Mild facet arthropathy. Musculature: Normal. No fatty atrophy. Other: The paravertebral and prevertebral soft tissues are unremarkable. The lung apices are clear. IMPRESSION: 1. Normal alignment is demonstrated at the C1-C2 level. 2. No fracture identified. 3. Cervical spondylosis. RADIA
--- NOTE | 2017-12-12 17:38 | PROVIDER PROGRESS NOTE ---
Subjective - Prog Note Date Prog Note Date: 12/12/17 Prog Note Time: 17:46 - Subjective Subjective: Daughters feel that she is improved. And putting together the story for themselves they wonder if this is what happened: Patient drinks 2 large glasses of wine a night which is equivalent to 4 glasses of wine for somebody else. She does this on a normal basis. She lost her 15 years ago, and then lost her son to a sudden event associated with possible cardiomyopathy from drug use 2 years ago. So she drinks because she is sad a little depressed and misses them. She is still described as a brilliant, fiercely independent and active elderly woman. Daughter spoke to her Saturday night. It looks like she was still dressed, not ready for bed and was doing some ironing. She has not taken her Eliquis for a few days in preparation for a dental procedure. Wine has been spilled. They describe wine splash in one area of the room, and then another area where large amount of wine and the bottle is been dry. Where the patient lay on the floor there is emesis, urine and feces. They think she tripped and fell, and was not able to get up. They are not to be able to say if her urinary tract infection was present before or after she fell. Between yesterday and today she has woken up a bit. She got agitated enough this morning that she required Ativan and is been quite sedated since then. But she does wake up, is speaking full sentences to her daughter. Unfortunately not recognizing her daughter. She no longer has a left lateral gaze and head is at midline position. Head back, mouth open and she is snoring. Current Medications - Current Medications Current Medications: Active Medications Acetaminophen (Tylenol) 650 mg PO Q4HR PRN PRN Reason: Pain 1 to 4 Enoxaparin Sodium (Lovenox) 60 mg SUBQ Q12H [facility] Last Admin: 12/12/17 12:12 Dose: 60 mg Sodium Chloride (Normal Saline 0.9%) 1,000 mls @ 100 mls/hr IV .Q10H [facility] Last Infusion: 12/12/17 17:00 Dose: 100 mls/hr Ciprofloxacin (Cipro 400 Mg/200 Ml) 200 mls @ 200 mls/hr IV Q12H [facility] Last Infusion: 12/12/17 13:15 Dose: Infused Diltiazem HCl 125 mg/ Dextrose 125 mls @ 5 mls/hr IV .Q25H [facility]; Protocol Last Admin: 12/12/17 17:00 Dose: 10 mg/hr, 10 mls/hr Metoprolol Tartrate (Lopressor Inj) 5 mg IVP Q6H PRN PRN Reason: Tachycardia Last Admin: 12/12/17 06:14 Dose: 5 mg Morphine Sulfate (Morphine (Carpuject)) 2 mg IVP Q2HR PRN PRN Reason: PAIN Last Admin: 12/12/17 02:31 Dose: 2 mg Ondansetron HCl (Zofran Inj) 4 mg IVP Q6HR PRN PRN Reason: Nausea / Vomiting Ondansetron HCl (Zofran Odt) 4 mg TL Q6HR PRN PRN Reason: Nausea / Vomiting Oxycodone HCl (Roxicodone) 5 mg PO Q4HR PRN PRN Reason: Pain 5 to 7 Prochlorperazine Edisylate (Compazine Inj) 10 mg IVP Q6HR PRN PRN Reason: Nausea / Vomiting Sodium Chloride (Normal Saline Flush 0.9%) 10 ml IVP 0100,0900,1700 [facility] Last Admin: 12/12/17 10:42 Dose: 10 ml Sodium Chloride (Normal Saline Flush 0.9%) 10 ml IVP PRN PRN PRN Reason: NEEDED PER PROVIDER ORDERS Last Admin: 12/12/17 06:14 Dose: 10 ml Losartan [Cozaar] 50 mg PO DAILY 06/26/16 Apixaban [Eliquis] 5 mg PO BID 12/11/17 Fesoterodine Fumarate [Toviaz] 4 mg PO DAILY 12/11/17 Metoprolol Tartrate 100 mg PO QPM 12/11/17 Metoprolol Tartrate 150 mg PO DAILY 12/11/17 Zolpidem Tartrate 5 mg PO QPM PRN 12/11/17 Objective - Vital Signs/Intake & Output Reviewed Vital Signs: Yes Vital Signs: Vital Signs Temp Pulse Resp BP Pulse Ox 12/12/17 16:00 36.7 C 136 H 17 112/88 H 98 12/12/17 15:00 36.6 C 111 H 22 114/78 98 12/12/17 14:00 36.6 C 119 H 16 136/99 H 94 Intake & Output: Intake & Output 12/09/17 12/10/17 12/11/17 12/12/17 23:59 23:59 23:59 23:59 Intake Total 4529.500 3500.667 Output Total 263 333 Balance 4266.500 3167.667 - Objective General Appearance: positive: No acute distress, Lethargic, Other (Sleeping elderly woman, head back, mouth open, snoring. Oral mucosa dry because of it. Both daughters at the bedside.) Eyes Bilateral: positive: PERRL, EOMI ENT: positive: Dry mucous membranes, Other (No longer has fixed deviated gaze to the left. Both eyes will open not just 1.) Neck: positive: No JVD, Other (C-spine collar still in place). negative: Stiff neck, Carotid bruit Respiratory: positive: Chest non-tender, No respiratory distress, Rhonchi. negative: Wheezes, Rales Cardiovascular: positive: Irregularly irregular, Tachycardia. negative: Systolic murmur, Gallop/S4 Abdomen: positive: Non-tender, No organomegaly, Nml bowel sounds, No distention. negative: Guarding, Rebound Skin: positive: Warm, Dry. negative: Diaphoresis Extremities: positive: Non-tender, No pedal edema Neurologic/Psychiatric: positive: CN's nml (2-12), Motor nml, Disoriented to person, Disoriented to time, Weakness, Slurred/abnml speech (She was able to tell her daughter that she was at [facility]. Initially thought she was in [place].), Other. negative: Facial droop - Lab Results Fish Bones: 12/12/17 05:55 12/12/17 05:55 Other Labs: Lab Results x24hrs 12/12/17 12/12/17 12/12/17 Range/Units 05:55 05:55 05:55 WBC (4.8-10.8) x10^3/uL RBC (4.20-5.40) 10^6/uL Hgb (12.0-16.0) g/dL Hct (37.0-47.0) % MCV (81.0-99.0) fL MCH (27.0-31.0) pg MCHC (32.0-36.0) g/dL RDW (12.0-15.0) % Plt Count (130-450) 10^3/uL MPV (7.9-10.8) fL Neut # (Auto) (1.5-6.6) 10^3/uL Lymph # (Auto) (1.5-3.5) 10^3/uL [place] # (Auto) (0.0-1.0) 10^3/uL Eos # (Auto) (0.0-0.7) 10^3/uL Baso # (Auto) (0.0-0.1) 10^3/uL Absolute Nucleated RBC x10^3/uL Nucleated RBC % /100WBC VBG pH 7.361 (7.31-7.41) Ionized Calcium 1.00 L (1.15-1.33) mmol/L Sodium (135-145) mmol/L Potassium (3.5-5.0) mmol/L Chloride (101-111) mmol/L Carbon Dioxide (21-32) mmol/L Anion Gap (6-13) BUN (6-20) mg/dL Creatinine (0.4-1.0) mg/dL Estimated GFR (MDRD) (>89) Glucose (70-100) mg/dL POC Whole Bld Glucose (70 - 100) mg/dL Lactic Acid (0.5-2.2) mmol/L Calcium (8.5-10.3) mg/dL Phosphorus 1.9 L (2.5-4.6) mg/dL Magnesium 2.4 (1.7-2.8) mg/dL Total Creatine Kinase (22-269) IU/L Troponin I (<0.49) ng/mL Albumin 3.0 L (3.2-5.5) g/dL 12/12/17 12/12/17 12/12/17 Range/Units 05:55 05:55 05:55 WBC 12.7 H (4.8-10.8) x10^3/uL RBC 3.50 L (4.20-5.40) 10^6/uL Hgb 11.9 L (12.0-16.0) g/dL Hct 35.7 L (37.0-47.0) % MCV 102.1 H (81.0-99.0) fL MCH 34.0 H (27.0-31.0) pg MCHC 33.3 (32.0-36.0) g/dL RDW 15.3 H (12.0-15.0) % Plt Count 147 (130-450) 10^3/uL MPV 7.5 L (7.9-10.8) fL Neut # (Auto) 10.9 H (1.5-6.6) 10^3/uL Lymph # (Auto) 0.5 L (1.5-3.5) 10^3/uL [place] # (Auto) 1.3 H (0.0-1.0) 10^3/uL Eos # (Auto) 0.0 (0.0-0.7) 10^3/uL Baso # (Auto) 0.0 (0.0-0.1) 10^3/uL Absolute Nucleated RBC 0.00 x10^3/uL Nucleated RBC % 0.0 /100WBC VBG pH (7.31-7.41) Ionized Calcium (1.15-1.33) mmol/L Sodium 139 (135-145) mmol/L Potassium 4.5 (3.5-5.0) mmol/L Chloride 113 H (101-111) mmol/L Carbon Dioxide 20 L (21-32) mmol/L Anion Gap 6.0 (6-13) BUN 16 (6-20) mg/dL Creatinine 0.6 (0.4-1.0) mg/dL Estimated GFR (MDRD) 96 (>89) Glucose 114 H (70-100) mg/dL POC Whole Bld Glucose (70 - 100) mg/dL Lactic Acid (0.5-2.2) mmol/L Calcium 7.3 L (8.5-10.3) mg/dL Phosphorus (2.5-4.6) mg/dL Magnesium (1.7-2.8) mg/dL Total Creatine Kinase 2252 H* (22-269) IU/L Troponin I (<0.49) ng/mL Albumin (3.2-5.5) g/dL 12/12/17 12/11/17 12/11/17 Range/Units 05:55 19:02 17:36 WBC (4.8-10.8) x10^3/uL RBC (4.20-5.40) 10^6/uL Hgb (12.0-16.0) g/dL Hct (37.0-47.0) % MCV (81.0-99.0) fL MCH (27.0-31.0) pg MCHC (32.0-36.0) g/dL RDW (12.0-15.0) % Plt Count (130-450) 10^3/uL MPV (7.9-10.8) fL Neut # (Auto) (1.5-6.6) 10^3/uL Lymph # (Auto) (1.5-3.5) 10^3/uL [place] # (Auto) (0.0-1.0) 10^3/uL Eos # (Auto) (0.0-0.7) 10^3/uL Baso # (Auto) (0.0-0.1) 10^3/uL Absolute Nucleated RBC x10^3/uL Nucleated RBC % /100WBC VBG pH (7.31-7.41) Ionized Calcium (1.15-1.33) mmol/L Sodium (135-145) mmol/L Potassium (3.5-5.0) mmol/L Chloride (101-111) mmol/L Carbon Dioxide (21-32) mmol/L Anion Gap (6-13) BUN (6-20) mg/dL Creatinine (0.4-1.0) mg/dL Estimated GFR (MDRD) (>89) Glucose (70-100) mg/dL POC Whole Bld Glucose (70 - 100) mg/dL Lactic Acid 1.2 2.1 (0.5-2.2) mmol/L Calcium (8.5-10.3) mg/dL Phosphorus (2.5-4.6) mg/dL Magnesium (1.7-2.8) mg/dL Total Creatine Kinase (22-269) IU/L Troponin I 0.08 (<0.49) ng/mL Albumin (3.2-5.5) g/dL 12/11/17 Range/Units 15:25 WBC (4.8-10.8) x10^3/uL RBC (4.20-5.40) 10^6/uL Hgb (12.0-16.0) g/dL Hct (37.0-47.0) % MCV (81.0-99.0) fL MCH (27.0-31.0) pg MCHC (32.0-36.0) g/dL RDW (12.0-15.0) % Plt Count (130-450) 10^3/uL MPV (7.9-10.8) fL Neut # (Auto) (1.5-6.6) 10^3/uL Lymph # (Auto) (1.5-3.5) 10^3/uL [place] # (Auto) (0.0-1.0) 10^3/uL Eos # (Auto) (0.0-0.7) 10^3/uL Baso # (Auto) (0.0-0.1) 10^3/uL Absolute Nucleated RBC x10^3/uL Nucleated RBC % /100WBC VBG pH (7.31-7.41) Ionized Calcium (1.15-1.33) mmol/L Sodium (135-145) mmol/L Potassium (3.5-5.0) mmol/L Chloride (101-111) mmol/L Carbon Dioxide (21-32) mmol/L Anion Gap (6-13) BUN (6-20) mg/dL Creatinine (0.4-1.0) mg/dL Estimated GFR (MDRD) (>89) Glucose (70-100) mg/dL POC Whole Bld Glucose 115 H (70 - 100) mg/dL Lactic Acid (0.5-2.2) mmol/L Calcium (8.5-10.3) mg/dL Phosphorus (2.5-4.6) mg/dL Magnesium (1.7-2.8) mg/dL Total Creatine Kinase (22-269) IU/L Troponin I (<0.49) ng/mL Albumin (3.2-5.5) g/dL Assessment/Plan - Problem List (1) Altered mental status Impression: on admission, She appeared to have left gaze neglect, grabbing at things that are not there, and had to be restrained in the emergency room for her own sake. She has atrial fibrillation. She was on Eliquis but had not taken it for a few days in preparation for a dental procedure. CT of the head was negative. However, this poor unfortunate female could still have had an embolic stroke then may have fallen down because of weakness, and then developed urinary incontinence, fecal incontinence with a UTI and rhabdo. She will be evaluated as a possible stroke. Urinary tract infection and rhabdo with dehydration will be treated as well. May be some of her neurologic symptoms will resolve if not completely improve. Between yesterday and today, she has stopped having left gaze neglect. Head is now at the midline. She has woken up and spoke in full sentences to her daughter's but then goes back to sleep and is quite sleepy sedated with Ativan and snoring. Now that the MRI and CAT scan of the head of been done. No strokes. This patient just may have metabolic encephalopathy from infection, alcohol. Plan: Inpatient status IV fluids IV antibiotics For infection MRI of the head Ordered since CT was negative. MRI does not show embolic stroke. She has diffuse white matter disease, mild atrophy. No brainstem stroke. Chest x-ray Showed cardiomegaly but no infiltrate. Phone call out to Dr. Pyle Last night. Will verify past medical history and past functional status after conversation.Dr. Pyle did call me this morning. At this time it was able to get a better history from the daughters, and I thank Dr. Pyle for her return phone call. Qualifiers: Altered mental status type: disorientation Qualified Code(s): R41.0 - Disorientation, unspecified (2) UTI (urinary tract infection) Conclusion/Plan: She is allergic to penicillin and is felt to have had severe respiratory distress from her allergy response. [place] antibiotic Guide recommend carbpenem as single agent therapy. But because of her allergy will use alternate regimen of ciprofloxacin. Adjust therapy on the basis of culture results. So far stay on the same therapy. Blood cultures show gram-negative bacilli and gram-positive cocci. It is positive for E. coli with sensitivities to follow. Negative for staph, strep, enterococcus, Listeria. Urine culture so far only shows gram-negative rods. Qualifiers: Urinary tract infection type: site unspecified Hematuria presence: without hematuria Qualified Code(s): N39.0 - Urinary tract infection, site not specified (3) Rhabdomyolysis Conclusion/Plan: Hydrate with 0.9 normal saline. Recheck daily. Recheck renal function daily. CPK 3446 is now 2252 Qualifiers: Rhabdomyolysis type: non-traumatic Qualified Code(s): M62.82 - Rhabdomyolysis (4) Dehydration Conclusion/Plan: As manifested by dryness and poor oral mucosa integrity. Creatinine is stable. BUN is elevated. Treat with IV fluids for hydration until she can eat on her own. Creatinine has gone from 0.9>0.6 (5) Atrial fibrillation with RVR Conclusion/Plan: On anticoagulation in the form of Eliquis. Her last prescription was filled in September 2017 for a 90-day supply. She is now on a diltiazem drip to control her rate. Plan: Transfer to ICU from emergency room. Transition to oral diltiazem or her usual oral metoprolol once rate is adequately controlled and her fluid status is stable with hydration. 2 sets of troponin were 0.08.. Currently being anticoagulated with Lovenox. When she is taking oral, will go back to Eliquis. (6) Abnormal CT scan, neck Conclusion/Plan: Will discuss with radiology with the next step is with regards to the rotation and doing need to be concerned. While her signs on physical exam show lateralization and left gaze deviation, neck does not appear stiff or painful.A repeat CT of the neck was done today. There is no fracture. She is cleared to have her C-spine collar taken off. (7) Hypokalemia Conclusion/Plan: supplement IV and will also give 2 grams Mg. (8) Weakness Plan on PT eval When she is more awake. This has been of pretty severe illness for her and I anticipate she will need rehab. A physical therapy evaluation does recommend rehab, her 2 daughters have requested that she go to [place] for a [facility] facility rehab there. (3) Rhabdomyolysis Qualifiers: Qualified Code(s): M62.82 - Rhabdomyolysis
[2017-12-12] MEDS ORDERED: SODIUM CHLORIDE FLUSH 0.9% 10 ML SYRINGE ONE (23:56)
[2017-12-13] MEDS: CIPROFLOXACIN 400 MG/200 ML 200 ML IV SCH ×2 (00:03→11:40)
[2017-12-13] MEDS: ENOXAPARIN 60 MG/0.6 ML SYRINGE SUBQ SCH ×2 (00:06→11:50)
[2017-12-13] MEDS ORDERED: MAGNESIUM SULFATE 2 GRAM 2 GM/50 ML BAG IV ONE (01:00)
[2017-12-13] MEDS: MORPHINE 2 MG/ML CARPUJECT IVP PRN (01:47)
[2017-12-13] MEDS: SODIUM CHLORIDE FLUSH 0.9% 10 ML SYRINGE IVP PRN ×2 (01:49→02:44)
[2017-12-13] MEDS: diltiaZEM INJ 125 MG in DEXTROSE 5% 100 ML IV SCH ×3 (01:57→19:00)
[2017-12-13] MEDS: METOPROLOL 5 MG/5 ML VIAL IVP PRN (02:44)
[2017-12-13 05:17] LABS: VBG PH 7.368 (7.31-7.41)
[2017-12-13] MEDS: SODIUM CHLORIDE 0.9% 1,000 ML IV SCH ×2 (05:24→08:01)
[2017-12-13 05:27] LABS: ALBUMIN 3.2 g/dL (3.2-5.5); CALCIUM 7.8 mg/dL (8.5-10.3); CREATININE 0.5 mg/dL (0.4-1.0); MAGNESIUM 2.2 mg/dL (1.7-2.8)
[2017-12-13 06:02] LABS: BASOPHILS % (AUTO) 0.1 %; EOSINOPHILS % (AUTO) 0.3 %; HGB - HEMOGLOBIN 11.4 g/dL (12.0-16.0); LYMPHOCYTES # (AUTO) 0.3 10^3/uL (1.5-3.5); LYMPHOCYTES % (AUTO) 3.6 %; MEAN CORPUSCULAR HEMOGLOBIN 35.1 pg (27.0-31.0); MEAN CORPUSCULAR HGB CONC 34.8 g/dL (32.0-36.0); MEAN CORPUSCULAR VOLUME 100.9 fL (81.0-99.0); MEAN PLATELET VOLUME 7.6 fL (7.9-10.8); MONOCYTES # (AUTO) 0.9 10^3/uL (0.0-1.0); MONOCYTES % (AUTO) 10.2 %; NEUTROPHILS # (AUTO) 7.4 10^3/uL (1.5-6.6); NEUTROPHILS % (AUTO) 85.8 %; PLT - PLATELET COUNT 138 10^3/uL (130-450); RED BLOOD COUNT 3.25 10^6/uL (4.20-5.40); RED CELL DISTRIBUTION WIDTH 15.2 % (12.0-15.0); WHITE BLOOD COUNT 8.6 x10^3/uL (4.8-10.8)
[2017-12-13] MEDS ORDERED: POTASSIUM PHOSPHATE 15 MMOL in SODIUM CHLORIDE 0.9% 250 ML IV ONE (08:00)
[2017-12-13] MEDS ORDERED: BISACODYL 10 MG SUPP PR ONE (09:00)
[2017-12-13] MEDS: SODIUM CHLORIDE FLUSH 0.9% 10 ML SYRINGE IVP SCH ×3 (09:29→21:22)
--- NOTE | 2017-12-13 13:23 | PROVIDER PROGRESS NOTE ---
Subjective - Prog Note Date Prog Note Date: 12/13/17 Prog Note Time: 13:21 - Subjective Pt reports feeling: Improved Subjective: She is chatting. Having complete conversations. Does not remember what happened. Still having some word finding problems, not quite tracking on dates. She denies any chest pain, palpitations, shortness of breath. She says that more than anything she does kind of "aches all over". She denies any abdominal pain, urgency, frequency. No headache, no blurred vision. No focal weakness at all. Current Medications - Current Medications Current Medications: Active Medications Acetaminophen (Tylenol) 650 mg PO Q4HR PRN PRN Reason: Pain 1 to 4 Enoxaparin Sodium (Lovenox) 60 mg SUBQ Q12H PAULIE Last Admin: 12/13/17 11:50 Dose: 60 mg Sodium Chloride (Normal Saline 0.9%) 1,000 mls @ 100 mls/hr IV .Q10H PAULIE Last Infusion: 12/13/17 13:00 Dose: 100 mls/hr Diltiazem HCl 125 mg/ Dextrose 125 mls @ 15 mls/hr IV .Q8H20M PAULIE; Protocol Last Titration: 12/13/17 13:00 Dose: 15 mg/hr, 15 mls/hr Multivitamins 10 ml/ Thiamine HCl 100 mg/ Folic Acid 1 mg/Potassium Chloride/Dextrose/Sod Cl 1,011.2 mls @ 100 mls/hr IV DAILY [facility] Ceftriaxone Sodium 2 gm/ (Sodium Chloride) 100 mls @ 200 mls/hr IV DAILY [facility] Metoprolol Tartrate (Lopressor Inj) 5 mg IVP Q6H PRN PRN Reason: Tachycardia Last Admin: 12/13/17 02:44 Dose: 5 mg Morphine Sulfate (Morphine (Carpuject)) 2 mg IVP Q2HR PRN PRN Reason: PAIN Last Admin: 12/13/17 01:47 Dose: 2 mg Ondansetron HCl (Zofran Inj) 4 mg IVP Q6HR PRN PRN Reason: Nausea / Vomiting Ondansetron HCl (Zofran Odt) 4 mg TL Q6HR PRN PRN Reason: Nausea / Vomiting Oxycodone HCl (Roxicodone) 5 mg PO Q4HR PRN PRN Reason: Pain 5 to 7 Prochlorperazine Edisylate (Compazine Inj) 10 mg IVP Q6HR PRN PRN Reason: Nausea / Vomiting Sodium Chloride (Normal Saline Flush 0.9%) 10 ml IVP 0100,0900,1700 PAULIE Last Admin: 12/13/17 09:29 Dose: 10 ml Sodium Chloride (Normal Saline Flush 0.9%) 10 ml IVP PRN PRN PRN Reason: NEEDED PER PROVIDER ORDERS Last Admin: 12/13/17 02:44 Dose: 10 ml Losartan [Cozaar] 50 mg PO DAILY 06/26/16 Apixaban [Eliquis] 5 mg PO BID 12/11/17 Fesoterodine Fumarate [Toviaz] 4 mg PO DAILY 12/11/17 Metoprolol Tartrate 100 mg PO QPM 12/11/17 Metoprolol Tartrate 150 mg PO DAILY 12/11/17 Zolpidem Tartrate 5 mg PO QPM PRN 12/11/17 Objective - Vital Signs/Intake & Output Reviewed Vital Signs: Yes Vital Signs: Vital Signs Temp Pulse Resp BP Pulse Ox 12/13/17 13:00 36.7 C 111 H 15 134/87 H 97 12/13/17 12:00 36.8 C 111 H 16 132/62 H 98 12/13/17 11:00 36.8 C 106 H 18 129/64 97 12/13/17 10:00 36.8 C 122 H 18 143/92 H 97 Intake & Output: Intake & Output 12/10/17 12/11/17 12/12/17 12/13/17 23:59 23:59 23:59 23:59 Intake Total 4529.500 4015.500 2266.833 Output Total 263 838 545 Balance 4266.500 3177.500 1721.833 - Objective General Appearance: positive: No acute distress, Alert, Other (Elderly white female who looks stated age, still struggling a little bit to find a word here and there. Struggling to remember the date and is not happy that she cannot remember what happened that brought her here.) Eyes Bilateral: positive: PERRL, EOMI ENT: positive: Pharynx nml Neck: positive: No JVD. negative: Carotid bruit Respiratory: positive: Chest non-tender. negative: Wheezes, Rales, Rhonchi Cardiovascular: positive: Irregularly irregular, Tachycardia. negative: Gallop/S4, Friction rub (101-111. still on diltiazem drip) Abdomen: positive: Non-tender, No organomegaly, Nml bowel sounds, No distention. negative: Guarding, Rebound Skin: positive: Warm, Dry Extremities: positive: Non-tender, Pedal edema Neurologic/Psychiatric: positive: CN's nml (2-12), Disoriented to time, Slurred/abnml speech (occasionally forget a word and gets frustrated.). negative: Motor nml (cerebellar F>N missed) - Lab Results Fish Bones: 12/13/17 05:57 12/13/17 04:45 Other Labs: Lab Results x24hrs 12/13/17 12/13/17 12/13/17 Range/Units 05:57 05:27 04:45 WBC 8.6 (4.8-10.8) x10^3/uL RBC 3.25 L (4.20-5.40) 10^6/uL Hgb 11.4 L (12.0-16.0) g/dL Hct 32.8 L (37.0-47.0) % MCV 100.9 H (81.0-99.0) fL MCH 35.1 H (27.0-31.0) pg MCHC 34.8 (32.0-36.0) g/dL RDW 15.2 H (12.0-15.0) % Plt Count 138 (130-450) 10^3/uL MPV 7.6 L (7.9-10.8) fL Neut # (Auto) 7.4 H (1.5-6.6) 10^3/uL Lymph # (Auto) 0.3 L (1.5-3.5) 10^3/uL [place] # (Auto) 0.9 (0.0-1.0) 10^3/uL Eos # (Auto) 0.0 (0.0-0.7) 10^3/uL Baso # (Auto) 0.0 (0.0-0.1) 10^3/uL Absolute Nucleated RBC 0.00 x10^3/uL Nucleated RBC % 0.0 /100WBC VBG pH 7.368 (7.31-7.41) Ionized Calcium 1.09 L (1.15-1.33) mmol/L Sodium (135-145) mmol/L Potassium (3.5-5.0) mmol/L Chloride (101-111) mmol/L Carbon Dioxide (21-32) mmol/L Anion Gap (6-13) BUN (6-20) mg/dL Creatinine (0.4-1.0) mg/dL Estimated GFR (MDRD) (>89) Glucose (70-100) mg/dL Calcium (8.5-10.3) mg/dL Phosphorus (2.5-4.6) mg/dL Magnesium (1.7-2.8) mg/dL Total Creatine Kinase 1127 H* (22-269) IU/L Albumin (3.2-5.5) g/dL 12/13/17 Range/Units 04:45 WBC (4.8-10.8) x10^3/uL RBC (4.20-5.40) 10^6/uL Hgb (12.0-16.0) g/dL Hct (37.0-47.0) % MCV (81.0-99.0) fL MCH (27.0-31.0) pg MCHC (32.0-36.0) g/dL RDW (12.0-15.0) % Plt Count (130-450) 10^3/uL MPV (7.9-10.8) fL Neut # (Auto) (1.5-6.6) 10^3/uL Lymph # (Auto) (1.5-3.5) 10^3/uL [place] # (Auto) (0.0-1.0) 10^3/uL Eos # (Auto) (0.0-0.7) 10^3/uL Baso # (Auto) (0.0-0.1) 10^3/uL Absolute Nucleated RBC x10^3/uL Nucleated RBC % /100WBC VBG pH (7.31-7.41) Ionized Calcium (1.15-1.33) mmol/L Sodium 139 (135-145) mmol/L Potassium 3.7 (3.5-5.0) mmol/L Chloride 110 (101-111) mmol/L Carbon Dioxide 21 (21-32) mmol/L Anion Gap 8.0 (6-13) BUN 10 (6-20) mg/dL Creatinine 0.5 (0.4-1.0) mg/dL Estimated GFR (MDRD) 119 (>89) Glucose 106 H (70-100) mg/dL Calcium 7.8 L (8.5-10.3) mg/dL Phosphorus 2.0 L (2.5-4.6) mg/dL Magnesium 2.2 (1.7-2.8) mg/dL Total Creatine Kinase (22-269) IU/L Albumin 3.2 (3.2-5.5) g/dL Assessment/Plan - Problem List (1) Altered mental status Impression: That has been improving but still not completely resolved. Present on admission, She appeared to have left gaze neglect, grabbing at things that are not there, and had to be restrained in the emergency room for her own sake. She has atrial fibrillation. She was on Eliquis but had not taken it for a few days in preparation for a dental procedure. CT of the head was negative. However, this poor unfortunate female could still have had an embolic stroke then may have fallen down because of weakness, and then developed urinary incontinence, fecal incontinence with a UTI and rhabdo. She was evaluated as a possible stroke. Urinary tract infection and rhabdo with dehydration was treated as well. By 12/11 she has stopped having left gaze neglect. Head is now at the midline. She has woken up 12/12 and spoke in full sentences to her daughters but then goes back to sleep and is quite sleepy sedated with Ativan and snoring. Today very chatty. Now that the MRI and CAT scan of the head of been done, no strokes seen. This patient just may have metabolic encephalopathy from infection, alcohol. Plan: Inpatient status IV fluids IV antibiotics For infection MRI of the head Ordered since CT was negative. MRI does not show embolic stroke. She has diffuse white matter disease, mild atrophy. No brainstem stroke. Chest x-ray Showed cardiomegaly but no infiltrate. Phone call out to Dr. Pyle on admission. Wanted to verify past medical history and past functional status. Dr. Pyle did call me 12/12 morning. At this time it was able to get a better history from the daughters, and I thank Dr. Pyle for her return phone call. Qualifiers: Altered mental status type: disorientation Qualified Code(s): R41.0 - Disorientation, unspecified (2) UTI (urinary tract infection) Conclusion/Plan: She is allergic to penicillin and is felt to have had severe respiratory distress from her allergy response. [place] antibiotic Guide recommend carbpenem as single agent therapy. But because of her allergy I used alternate regimen of ciprofloxacin. Adjust therapy on the basis of culture results: Blood cultures show gram-negative bacilli and gram-positive cocci. It is positive for E. coli with sensitivities to follow. Negative for staph, strep, enterococcus, Listeria. Urine culture initially showed gram-negative rods. Now positive for E. coli. However resistant to Cipro. Change to Rocephin. Watch for allergic response since she is very allergic to penicillins. Qualifiers: Urinary tract infection type: site unspecified Hematuria presence: without hematuria Qualified Code(s): N39.0 - Urinary tract infection, site not specified (3) Rhabdomyolysis Conclusion/Plan: Hydrate with 0.9 normal saline. Recheck daily. Recheck renal function daily. CPK 3446> 2252>1127 Qualifiers: Rhabdomyolysis type: non-traumatic Qualified Code(s): M62.82 - Rhabdo myolysis (4) Dehydration Conclusion/Plan: As manifested by dryness and poor oral mucosa integrity. Creatinine is stable. BUN is elevated. Treat with IV fluids for hydration until she can eat on her own. Creatinine has gone from 0.9>0.6>0.5 On a regular diet but not awake enough to eat so food intake has been 0%. Will encourage her to eat today. (5) Atrial fibrillation with RVR Conclusion/Plan: On anticoagulation in the form of Eliquis. Her last prescription was filled in September 2017 for a 90-day supply. She continues on a diltiazem drip to control her rate with prn lopressor and she has had 4 doses of that since 12/12. Echocardiogram done December 12 shows a have an ejection fraction of 40-45%. Severe increase in left atrial volume index when compared to previous echo. Mild to moderate right atrial enlargement. Moderate mitral regurgitation. Moderate tricuspid regurgitation. Moderately abnormal right heart pressures. Mild to moderate pulmonic regurgitation. Negative for atrial shunt. Plan: Transferred to ICU from emergency room. Transition to oral diltiazem or her usual oral metoprolol once rate is adequately controlled and her fluid status is stable with hydration. 2 sets of troponin were 0.08. Currently being anticoagulated with Lovenox. Now that she can do oral, will go back to Eliquis. Add digoxin. Watch for 2 degree or 3rd degree AVB on tele. We will give Lasix x1 dose and stop IV fluids for the right sided heart pressures. (6) Abnormal CT scan, neck Conclusion/Plan: Discussed with radiology what the next step was with regards to the rotation and doing need to be concerned. While her signs on physical exam show lateralization and left gaze deviation, neck does not appear stiff or painful.A repeat CT of the neck was done 12/12 and there is no fracture. She was cleared to have her C-spine collar taken off. (7) Hypokalemia Conclusion/Plan: supplement IV and will also give 2 grams Mg. She has a hx of possible alcohol abuse so will get bannana bag and vitamin. (8) Weakness Plan on PT eval When she is more awake. This has been of pretty severe illness for her and I anticipate she will need rehab. A physical therapy evaluation does recommend rehab, her 2 daughters have requested that she go to [place] for a correction facility rehab there.
[2017-12-13] MEDS: cefTRIAXone 2 GM in SODIUM CHLORIDE 0.9% MINIBAG 100 ML IV SCH (13:30)
[2017-12-13] MEDS ORDERED: FUROSEMIDE 20 MG/2 ML VIAL IVP STA (13:40)
[2017-12-13] MEDS ORDERED: MULTIVITAMIN 10 ML, THIAMINE INJ 100 MG, FOLIC ACID INJ 1 MG in D5.45NS W/20 MEQ KCL 1,... IV SCH (13:45)
[2017-12-13] MEDS: DIGOXIN 500 MCG/2 ML AMP IVP SCH ×3 (14:27→21:25)
[2017-12-13] MEDS: PRENATAL VITAMIN TABLET PO SCH (14:44)
[2017-12-13] MEDS: APIXABAN 5 MG TABLET PO SCH ×2 (14:44→21:25)
[2017-12-14] MEDS: diltiaZEM INJ 125 MG in DEXTROSE 5% 100 ML IV SCH ×2 (03:40→12:53)
[2017-12-14 06:15] LABS: VBG PH 7.454 (7.31-7.41)
[2017-12-14 06:30] LABS: BASOPHILS % (AUTO) 0.2 %; EOSINOPHILS # (AUTO) 0.1 10^3/uL (0.0-0.7); EOSINOPHILS % (AUTO) 1.1 %; HGB - HEMOGLOBIN 11.1 g/dL (12.0-16.0); LYMPHOCYTES # (AUTO) 0.5 10^3/uL (1.5-3.5); LYMPHOCYTES % (AUTO) 7.7 %; MEAN CORPUSCULAR HEMOGLOBIN 35.2 pg (27.0-31.0); MEAN CORPUSCULAR HGB CONC 35.1 g/dL (32.0-36.0); MEAN CORPUSCULAR VOLUME 100.2 fL (81.0-99.0); MEAN PLATELET VOLUME 8.1 fL (7.9-10.8); MONOCYTES # (AUTO) 0.7 10^3/uL (0.0-1.0); MONOCYTES % (AUTO) 11.7 %; NEUTROPHILS # (AUTO) 4.8 10^3/uL (1.5-6.6); NEUTROPHILS % (AUTO) 79.3 %; PLT - PLATELET COUNT 125 10^3/uL (130-450); RED BLOOD COUNT 3.16 10^6/uL (4.20-5.40); RED CELL DISTRIBUTION WIDTH 14.8 % (12.0-15.0)
[2017-12-14 06:46] LABS: CALCIUM 7.9 mg/dL (8.5-10.3); CREATININE 0.5 mg/dL (0.4-1.0); MAGNESIUM 1.9 mg/dL (1.7-2.8); PHOSPHORUS 1.8 mg/dL (2.5-4.6)
[2017-12-14] MEDS ORDERED: POTASSIUM CHLORIDE 20 MEQ TABLET PO ONE (08:00)
--- NOTE | 2017-12-14 08:15 | PROVIDER PROGRESS NOTE ---
Subjective - Prog Note Date Prog Note Date: 12/14/17 Prog Note Time: 08:13 - Subjective Pt reports feeling: Improved Subjective: Both of her daughters are here to visit her. The plan is for her to be evaluated by physical therapy for rehab and possible sniff placement. After significant rehab she will go home. Both daughters of family stated they want her to go to [place]. The patient is reluctantly agreeing to that. She cannot remember what happened. She knows that she was getting ready for dinner. Her usual routine is to open a bottle of wine, drink a glass before dinner and drink a glass after dinner. She remembers opening the bottle of wine, had a glass in her hand, and that is all she remembers. She does not remember if she ate dinner or not. She does not remember why she fell. She does not remember anything. She does know that before she got sick, she was not feeling well. She was nauseated, hated that the metoprolol made her feel so tired. She denied fever or chills. Her urine was starting to get concentrated and smell Current Medications - Current Medications Current Medications: Active Medications Acetaminophen (Tylenol) 650 mg PO Q4HR PRN PRN Reason: Pain 1 to 4 Last Admin: 12/13/17 21:20 Dose: 650 mg Apixaban (Eliquis) 5 mg PO BID [facility] Last Admin: 12/14/17 08:51 Dose: 5 mg Digoxin (Lanoxin) 125 mcg PO DAILY [facility] Diltiazem HCl (Cardizem) 60 mg PO Q6HR [facility] Diltiazem HCl 125 mg/ Dextrose 125 mls @ 15 mls/hr IV .Q8H20M [facility]; Protocol Stop: 12/14/17 15:00 Last Admin: 12/14/17 12:53 Dose: 15 mg/hr, 15 mls/hr Ceftriaxone Sodium 2 gm/ (Sodium Chloride) 100 mls @ 200 mls/hr IV DAILY [facility] Last Infusion: 12/14/17 09:59 Dose: Infused Calcium Gluconate 2,000 mg/ (Sodium Chloride) 120 mls @ 120 mls/hr IV ONCE ONE Stop: 12/14/17 14:59 Metoprolol Tartrate (Lopressor Inj) 5 mg IVP Q6H PRN PRN Reason: Tachycardia Last Admin: 12/13/17 02:44 Dose: 5 mg Metoprolol Tartrate (Lopressor) 50 mg PO BID [facility] Morphine Sulfate (Morphine (Carpuject)) 2 mg IVP Q2HR PRN PRN Reason: PAIN Last Admin: 12/13/17 01:47 Dose: 2 mg Ondansetron HCl (Zofran Inj) 4 mg IVP Q6HR PRN PRN Reason: Nausea / Vomiting Ondansetron HCl (Zofran Odt) 4 mg TL Q6HR PRN PRN Reason: Nausea / Vomiting Oxycodone HCl (Roxicodone) 5 mg PO Q4HR PRN PRN Reason: Pain 5 to 7 Multivit/Folic Acid/Iron (Trinatal Rx 1) 1 tab PO DAILYWM [facility] Last Admin: 12/14/17 08:50 Dose: 1 tab Prochlorperazine Edisylate (Compazine Inj) 10 mg IVP Q6HR PRN PRN Reason: Nausea / Vomiting Sodium Chloride (Normal Saline Flush 0.9%) 10 ml IVP 0100,0900,1700 [facility] Last Admin: 12/14/17 08:59 Dose: 10 ml Sodium Chloride (Normal Saline Flush 0.9%) 10 ml IVP PRN PRN PRN Reason: NEEDED PER PROVIDER ORDERS Last Admin: 12/13/17 02:44 Dose: 10 ml Losartan [Cozaar] 50 mg PO DAILY 06/26/16 Apixaban [Eliquis] 5 mg PO BID 12/11/17 Fesoterodine Fumarate [Toviaz] 4 mg PO DAILY 12/11/17 Metoprolol Tartrate 100 mg PO QPM 12/11/17 Metoprolol Tartrate 150 mg PO DAILY 12/11/17 Zolpidem Tartrate 5 mg PO QPM PRN 12/11/17 Objective - Vital Signs/Intake & Output Reviewed Vital Signs: Yes Vital Signs: Vital Signs Temp Pulse Resp BP Pulse Ox 12/14/17 08:00 120 H 16 166/99 H 95 12/14/17 07:00 101 H 25 H 143/82 H 95 12/14/17 06:00 37.0 C 82 17 132/83 H 95 12/14/17 05:00 37.0 C 83 14 123/80 94 Intake & Output: Intake & Output 12/11/17 12/12/17 12/13/17 10/06/18 23:59 23:59 23:59 23:59 Intake Total 4529.500 4015.500 3862.500 1586.2 Output Total 719 502 6153 1425 Balance 4266.500 3177.500 -152.500 161.2 - Objective General Appearance: positive: Alert Eyes Bilateral: positive: PERRL, EOMI ENT: positive: Other (voice a little hoarse) Neck: positive: No JVD. negative: Stiff neck, Carotid bruit Respiratory: positive: Chest non-tender. negative: Wheezes, Rales, Rhonchi Cardiovascular: positive: Irregularly irregular, Tachycardia (to 110, once or twice up to 120 with moving around). negative: Gallop/S4, Friction rub Abdomen: positive: Non-tender, No organomegaly, Nml bowel sounds, No distention. negative: Guarding, Rebound Skin: positive: Warm, Dry Extremities: positive: Full ROM, No pedal edema Neurologic/Psychiatric: positive: Oriented x3, CN's nml (2-12), Motor nml, Weakness - Lab Results Fish Bones: 12/14/17 04:55 12/14/17 04:55 Other Labs: Lab Results x24hrs 12/14/17 12/14/17 12/14/17 Range/Units 04:55 04:55 04:55 WBC (4.8-10.8) x10^3/uL RBC (4.20-5.40) 10^6/uL Hgb (12.0-16.0) g/dL Hct (37.0-47.0) % MCV (81.0-99.0) fL MCH (27.0-31.0) pg MCHC (32.0-36.0) g/dL RDW (12.0-15.0) % Plt Count (130-450) 10^3/uL MPV (7.9-10.8) fL Neut # (Auto) (1.5-6.6) 10^3/uL Lymph # (Auto) (1.5-3.5) 10^3/uL [place] # (Auto) (0.0-1.0) 10^3/uL Eos # (Auto) (0.0-0.7) 10^3/uL Baso # (Auto) (0.0-0.1) 10^3/uL Absolute Nucleated RBC x10^3/uL Nucleated RBC % /100WBC VBG pH 7.454 H (7.31-7.41) Ionized Calcium 1.05 L (1.15-1.33) mmol/L Sodium (135-145) mmol/L Potassium (3.5-5.0) mmol/L Chloride (101-111) mmol/L Carbon Dioxide (21-32) mmol/L Anion Gap (6-13) BUN (6-20) mg/dL Creatinine (0.4-1.0) mg/dL Estimated GFR (MDRD) (>89) Glucose (70-100) mg/dL Calcium (8.5-10.3) mg/dL Phosphorus (2.5-4.6) mg/dL Magnesium (1.7-2.8) mg/dL Total Creatine Kinase 766 H (22-269) IU/L B-Natriuretic Peptide 429 H (5-100) pg/mL 12/14/17 12/14/17 Range/Units 04:55 04:55 WBC 6.0 (4.8-10.8) x10^3/uL RBC 3.16 L (4.20-5.40) 10^6/uL Hgb 11.1 L (12.0-16.0) g/dL Hct 31.7 L (37.0-47.0) % MCV 100.2 H (81.0-99.0) fL MCH 35.2 H (27.0-31.0) pg MCHC 35.1 (32.0-36.0) g/dL RDW 14.8 (12.0-15.0) % Plt Count 125 L (130-450) 10^3/uL MPV 8.1 (7.9-10.8) fL Neut # (Auto) 4.8 (1.5-6.6) 10^3/uL Lymph # (Auto) 0.5 L (1.5-3.5) 10^3/uL [place] # (Auto) 0.7 (0.0-1.0) 10^3/uL Eos # (Auto) 0.1 (0.0-0.7) 10^3/uL Baso # (Auto) 0.0 (0.0-0.1) 10^3/uL Absolute Nucleated RBC 0.00 x10^3/uL Nucleated RBC % 0.0 /100WBC VBG pH (7.31-7.41) Ionized Calcium (1.15-1.33) mmol/L Sodium 141 (135-145) mmol/L Potassium 3.3 L (3.5-5.0) mmol/L Chloride 106 (101-111) mmol/L Carbon Dioxide 28 (21-32) mmol/L Anion Gap 7.0 (6-13) BUN 5 L (6-20) mg/dL Creatinine 0.5 (0.4-1.0) mg/dL Estimated GFR (MDRD) 119 (>89) Glucose 114 H (70-100) mg/dL Calcium 7.9 L (8.5-10.3) mg/dL Phosphorus 1.8 L (2.5-4.6) mg/dL Magnesium 1.9 (1.7-2.8) mg/dL Total Creatine Kinase (22-269) IU/L B-Natriuretic Peptide (5-100) pg/mL Assessment/Plan - Problem List (1) Altered mental status Impression: That has been improving and almost resolved. Present on admission: She appeared to have left gaze neglect, grabbing at things that are not there, and had to be restrained in the emergency room for her own sake. Today she is alert, a little forgetful, but her personality definitely shines thru. She has atrial fibrillation. She was on Eliquis but had not taken it for a few days in preparation for a dental procedure. CT of the head was negative. However, this poor unfortunate female could still have had an embolic stroke then may have fallen down because of weakness, and then developed urinary incontinence, fecal incontinence with a UTI and rhabdo. She was evaluated as a possible stroke. Urinary tract infection and rhabdo with dehydration was treated as w ell. By 12/11 she has stopped having left gaze neglect. Head is now at the midline. She had woken up 12/12 and spoke in full sentences to her daughters but then goes back to sleep and is quite sleepy sedated with Ativan and snoring. By 12/13 chatty and today even more so. Delightful lady. Now that the MRI and CAT scan of the head of been done, no strokes seen. This patient just may have metabolic encephalopathy from infection, alcohol. Plan: IV fluids can be stopped since she is alert enough to eat and drink IV antibiotics for infection MRI of the head ordered since CT was negative. MRI does not show embolic stroke. She has diffuse white matter disease, mild atrophy. No brainstem stroke. Chest x-ray showed cardiomegaly but no infiltrate. Phone call out to Dr. Pyle on admission. Wanted to verify past medical history and past functional status. Dr. Pyle did call me 12/12 morning. At this time it was able to get a better history from the daughters, and I thank Dr. Pyle for her return phone call. Transfer from ICU to Med surg status. Qualifiers: Altered mental status type: disorientation Qualified Code(s): R41.0 - Disorientation, unspecified (2) UTI (urinary tract infection) Conclusion/Plan: She is allergic to penicillin and is felt to have had severe respiratory distress from her allergy response. [place] antibiotic Guide recommend carbpenem as single agent therapy. But because of her allergy I used alternate regimen of ciprofloxacin. Adjusted therapy on the basis of culture results: Blood cultures show gram-negative bacilli and gram-positive cocci. It is positive for E. coli with sensitivities to follow. Negative for staph, strep, enterococcus, Listeria. Urine culture initially showed gram-negative rods. Now positive for E. coli. However resistant to Cipro. Change to Rocephin. Day#2 after 3 days of Cipro. Aim for total of 7 days of abx. Watch for allergic response since she is very allergic to penicillins. Qualifiers: Urinary tract infection type: site unspecified Hematuria presence: without hematuria Qualified Code(s): N39.0 - Urinary tract infection, site not specified (3) Rhabdomyolysis Conclusion/Plan: Hydrate with 0.9 normal saline. Recheck daily. Recheck renal function daily. CPK 3446> 2252>1127>766 Qualifiers: Rhabdomyolysis type: non-traumatic Qualified Code(s): M62.82 - Rhabdomyolysis (4) Dehydration Conclusion/Plan: As manifested by dryness and poor oral mucosa integrity. Creatinine is stable. BUN is elevated. Treat with IV fluids for hydration until she can eat on her own. Creatinine has gone from 0.9>0.6>0.5 On a regular diet but not awake enough to eat so food intake had been 0%. She ate 75% of her dinner last night. (5) Atrial fibrillation with RVR/acute on chronic congestive heart failure NYHA Class II. Conclusion/Plan: On anticoagulation in the form of Eliquis. Her last prescription was filled in September 2017 for a 90-day supply. She continues on a diltiazem drip to control her rate with prn lopressor and she has had 4 doses of that since 12/12. Echocardiogram done December 12 shows a have an ejection fraction of 40-45%. Severe increase in left atrial volume index when compared to previous echo. Mild to moderate right atrial enlargement. Moderate mitral regurgitation. Moderate tricuspid regurgitation. Moderately abnormal right heart pressures. Mild to moderate pulmonic regurgitation. Negative for atrial shunt. Plan: Transferred to ICU from emergency room. Transition to oral diltiazem and oral metoprolol today but I will lower the metoprolol dose for now since she is now on dilt AND lopressor AND dig. Rate is adequately controlled and is <110 goal and her fluid status is stable with hydration. 2 sets of troponin were 0.08. Was being anticoagulated with Lovenox. Now that she can do oral, back to Eliquis on 12/13. Digoxin loaded 12/13 and she is still tachy to 120's this morning with cardizem drip, digoxin IV and prn lopressor but will transition to oral now. Watch for 2 degree or 3rd degree AVB on tele. I did give Lasix x1 dose and stopped IV fluids for the right sided heart pressures yesterday. BNP 479 today. (6) Abnormal CT scan, neck Conclusion/Plan: Discussed with radiology what the next step was with regards to the rotation and doing need to be concerned. While her signs on physical exam show lateralization and left gaze deviation, neck does not appear stiff or painful.A repeat CT of the neck was done 12/12 and there is no fracture. She was cleared to have her C-spine collar taken off. (7) Hypokalemia Conclusion/Plan: supplement IV and will also give 2 grams Mg. She has a hx of possible alcohol abuse so will get bannana bag and vitamin. Today she is 3.3 and will need K+, Calcium and Phos replaced for hypocalcemia, and hypophsphatemia as well. (8) Weakness PT eval done now that she is more awake. This has been a severe illness for her and I anticipate she will need rehab. If a physical therapy evaluation does recommend rehab, her 2 daughters have requested that she go to [place] for a fdc facility rehab there. 12/13 PT note: Pt. has made significant progress in her mobility since this AM session. Good progression with independence in bed mobility. She does require tactile and repeated verbal cues for task execution. Sit<>stand with multiples cues for hand placement as she wants to pull to stand. Progress transfer and gait training to improve her independence with functional mobility. Recommend at D/C, patient transfer to SNF close to her family in [place] for continued PT for strengthening, gait, and transfer training.
[2017-12-14] MEDS: PRENATAL VITAMIN TABLET PO SCH (08:50)
[2017-12-14] MEDS: NEUTRA-PHOS 250 MG TABLET PO SCH ×2 (08:50→11:17)
[2017-12-14] MEDS: APIXABAN 5 MG TABLET PO SCH ×2 (08:51→20:04)
[2017-12-14] MEDS: cefTRIAXone 2 GM in SODIUM CHLORIDE 0.9% MINIBAG 100 ML IV SCH (08:54)
[2017-12-14] MEDS: DIGOXIN 500 MCG/2 ML AMP IVP SCH (08:55)
[2017-12-14] MEDS: SODIUM CHLORIDE FLUSH 0.9% 10 ML SYRINGE IVP SCH ×2 (08:59→17:35)
[2017-12-14] MEDS ORDERED: MULTIVITAMIN 10 ML, THIAMINE INJ 100 MG, FOLIC ACID INJ 1 MG in D5.45NS W/20 MEQ KCL 1,... IV SCH (09:00)
[2017-12-14] MEDS ORDERED: CALCIUM CITRATE 250 MG TABLET PO SCH (13:00)
[2017-12-14] MEDS ORDERED: CALCIUM GLUCONATE 2,000 MG in SODIUM CHLORIDE 0.9% 100ML 100 ML IV ONE (14:00)
[2017-12-14] MEDS: METOPROLOL TARTRATE 50 MG TABLET PO SCH ×2 (14:18→20:04)
[2017-12-14] MEDS: SODIUM CHLORIDE FLUSH 0.9% 10 ML SYRINGE IVP PRN (15:33)
[2017-12-15] MEDS: SODIUM CHLORIDE FLUSH 0.9% 10 ML SYRINGE IVP SCH ×3 (00:25→18:12)
[2017-12-15 05:48] LABS: BASOPHILS % (AUTO) 0.3 %; EOSINOPHILS # (AUTO) 0.1 10^3/uL (0.0-0.7); EOSINOPHILS % (AUTO) 1.2 %; HGB - HEMOGLOBIN 12.5 g/dL (12.0-16.0); LYMPHOCYTES # (AUTO) 0.6 10^3/uL (1.5-3.5); LYMPHOCYTES % (AUTO) 7.8 %; MEAN CORPUSCULAR HEMOGLOBIN 34.8 pg (27.0-31.0); MEAN CORPUSCULAR HGB CONC 35.2 g/dL (32.0-36.0); MEAN CORPUSCULAR VOLUME 99.1 fL (81.0-99.0); MEAN PLATELET VOLUME 7.4 fL (7.9-10.8); MONOCYTES # (AUTO) 0.9 10^3/uL (0.0-1.0); MONOCYTES % (AUTO) 11.7 %; NEUTROPHILS # (AUTO) 5.9 10^3/uL (1.5-6.6); PLT - PLATELET COUNT 139 10^3/uL (130-450); WHITE BLOOD COUNT 7.5 x10^3/uL (4.8-10.8)
[2017-12-15 06:00] LABS: ALBUMIN 3.4 g/dL (3.2-5.5); ALBUMIN/GLOBULIN RATIO 1.3 (1.0-2.2); ALKALINE PHOSPHATASE 50 IU/L (42-121); ALT ALANINE AMINOTRANSFERASE 46 IU/L (10-60); AST ASPARTATE AMINOTRANSFERASE 73 IU/L (10-42); BILIRUBIN,TOTAL 0.8 mg/dL (0.2-1.0); BUN - BLOOD UREA NITROGEN 5 mg/dL (6-20); CALCIUM 8.6 mg/dL (8.5-10.3); CARBON DIOXIDE - CO2 31 mmol/L (21-32); CHLORIDE 99 mmol/L (101-111); CREATININE 0.4 mg/dL (0.4-1.0); GFR - MDRD 154 (>89); GLUCOSE 116 mg/dL (70-100); SODIUM 136 mmol/L (135-145); TOTAL PROTEIN 6.1 g/dL (6.7-8.2)
[2017-12-15] MEDS: METOPROLOL TARTRATE 50 MG TABLET PO SCH ×2 (08:45→20:33)
[2017-12-15] MEDS: PRENATAL VITAMIN TABLET PO SCH (08:45)
[2017-12-15] MEDS: APIXABAN 5 MG TABLET PO SCH ×2 (08:46→20:33)
--- NOTE | 2017-12-15 08:48 | PROVIDER PROGRESS NOTE ---
Subjective - Prog Note Date Prog Note Date: 12/15/17 Prog Note Time: 13:14 - Subjective Pt reports feeling: Improved Subjective: She is cheerful. Getting ready to eat her breakfast. Denies chest pain, palpitations, shortness of breath. The only thing that happened overnight is that she started to develop sinus pauses. And slow down her heart rate into the 40s and 50s. I have her on diltiazem oral, digoxin oral, and Lopressor oral. She is asymptomatic with this. Current Medications - Current Medications Current Medications: Active Medications Acetaminophen (Tylenol) 650 mg PO Q4HR PRN PRN Reason: Pain 1 to 4 Last Admin: 12/13/17 21:20 Dose: 650 mg Apixaban (Eliquis) 5 mg PO BID [facility] Last Admin: 12/15/17 08:46 Dose: 5 mg Diltiazem HCl (Cardizem) 30 mg PO Q6HR [facility] Last Admin: 12/15/17 13:01 Dose: 30 mg Ceftriaxone Sodium 2 gm/ (Sodium Chloride) 100 mls @ 200 mls/hr IV DAILY [facility] Last Infusion: 12/15/17 09:30 Dose: Infused Metoprolol Tartrate (Lopressor Inj) 5 mg IVP Q6H PRN PRN Reason: Tachycardia Last Admin: 12/13/17 02:44 Dose: 5 mg Metoprolol Tartrate (Lopressor) 50 mg PO BID [facility] Last Admin: 12/15/17 08:45 Dose: 50 mg Morphine Sulfate (Morphine (Carpuject)) 2 mg IVP Q2HR PRN PRN Reason: PAIN Last Admin: 12/13/17 01:47 Dose: 2 mg Ondansetron HCl (Zofran Inj) 4 mg IVP Q6HR PRN PRN Reason: Nausea / Vomiting Ondansetron HCl (Zofran Odt) 4 mg TL Q6HR PRN PRN Reason: Nausea / Vomiting Oxycodone HCl (Roxicodone) 5 mg PO Q4HR PRN PRN Reason: Pain 5 to 7 Multivit/Folic Acid/Iron (Trinatal Rx 1) 1 tab PO DAILYWM [facility] Last Admin: 12/15/17 08:45 Dose: 1 tab Prochlorperazine Edisylate (Compazine Inj) 10 mg IVP Q6HR PRN PRN Reason: Nausea / Vomiting Sodium Chloride (Normal Saline Flush 0.9%) 10 ml IVP 0100,0900,1700 [facility] Last Admin: 12/15/17 08:53 Dose: 10 ml Sodium Chloride (Normal Saline Flush 0.9%) 10 ml IVP PRN PRN PRN Reason: NEEDED PER PROVIDER ORDERS Last Admin: 12/14/17 15:33 Dose: 20 ml Losartan [Cozaar] 50 mg PO DAILY 06/26/16 Apixaban [Eliquis] 5 mg PO BID 12/11/17 Fesoterodine Fumarate [Toviaz] 4 mg PO DAILY 12/11/17 Metoprolol Tartrate 100 mg PO QPM 12/11/17 Metoprolol Tartrate 150 mg PO DAILY 12/11/17 Zolpidem Tartrate 5 mg PO QPM PRN 12/11/17 Objective - Vital Signs/Intake & Output Reviewed Vital Signs: Yes Vital Signs: Vital Signs x48h Temp Pulse Resp BP BP Pulse Ox 12/15/17 06:45 150/96 H 12/15/17 05:00 37.1 C 90 16 150/96 H 96 Intake & Output: Intake & Output 12/12/17 12/13/17 12/14/17 12/15/17 23:59 23:59 23:59 23:59 Intake Total 4015.500 3862.500 3850.45 100 Output Total 838 4015 3920 2300 Balance 3177.500 -152.500 -69.55 -2200 - Objective General Appearance: positive: No acute distress, Alert Eyes Bilateral: positive: PERRL, EOMI ENT: positive: Pharynx nml Neck: positive: No JVD. negative: Stiff neck, Carotid bruit Respiratory: positive: Chest non-tender. negative: Wheezes, Rales, Rhonchi Cardiovascular: positive: Irregularly irregular, Bradycardia, Systolic murmur. negative: Gallop/S4, Friction rub Skin: positive: Warm, Dry Extremities: positive: Non-tender, Full ROM, No pedal edema Neurologic/Psychiatric: positive: Oriented x3, CN's nml (2-12), Motor nml - Lab Results Fish Bones: 12/15/17 05:20 12/15/17 05:20 Other Labs: Lab Results x24hrs 12/15/17 12/15/17 Range/Units 05:20 05:20 WBC 7.5 (4.8-10.8) x10^3/uL RBC 3.60 L (4.20-5.40) 10^6/uL Hgb 12.5 (12.0-16.0) g/dL Hct 35.7 L (37.0-47.0) % MCV 99.1 H (81.0-99.0) fL MCH 34.8 H (27.0-31.0) pg MCHC 35.2 (32.0-36.0) g/dL RDW 15.0 (12.0-15.0) % Plt Count 139 (130-450) 10^3/uL MPV 7.4 L (7.9-10.8) fL Neut # (Auto) 5.9 (1.5-6.6) 10^3/uL Lymph # (Auto) 0.6 L (1.5-3.5) 10^3/uL [place]e # (Auto) 0.9 (0.0-1.0) 10^3/uL Eos # (Auto) 0.1 (0.0-0.7) 10^3/uL Baso # (Auto) 0.0 (0.0-0.1) 10^3/uL Absolute Nucleated RBC 0.00 x10^3/uL Nucleated RBC % 0.0 /100WBC Sodium 136 (135-145) mmol/L Potassium 3.4 L (3.5-5.0) mmol/L Chloride 99 L (101-111) mmol/L Carbon Dioxide 31 (21-32) mmol/L Anion Gap 6.0 (6-13) BUN 5 L (6-20) mg/dL Creatinine 0.4 (0.4-1.0) mg/dL Estimated GFR (MDRD) 154 (>89) Glucose 116 H (70-100) mg/dL Calcium 8.6 (8.5-10.3) mg/dL Ionized Calcium NO Total Bilirubin 0.8 (0.2-1.0) mg/dL AST 73 H (10-42) IU/L ALT 46 (10-60) IU/L Alkaline Phosphatase 50 (42-121) IU/L Total Protein 6.1 L (6.7-8.2) g/dL Albumin 3.4 (3.2-5.5) g/dL Globulin 2.7 (2.1-4.2) g/dL Albumin/Globulin Ratio 1.3 (1.0-2.2) ABX Reporting Has patient been on IV antibiotics over the past 48 hours?: Yes Assessment/Plan - Problem List (1) UTI (urinary tract infection) Impression: he is allergic to penicillin and is felt to have had severe respiratory distress from her allergy response. [place] antibiotic Guide recommend carbpenem as single agent therapy. But because of her allergy I used alternate regimen of ciprofloxacin. Adjusted therapy on the basis of culture results: Blood cultures show gram-negative bacilli and gram-positive cocci. It is po sitive for E. coli with sensitivities to follow. Negative for staph, strep, enterococcus, Listeria. Sensitivities still pending today. Urine culture initially showed gram-negative rods then positive for E. coli. However resistant to Cipro. Changed to Rocephin. Day#3 after 3 days of Cipro. Aim for total of 7 days of abx. So tomorrow's dose will be last dose. Watch for allergic response since she is very allergic to penicillins. Qualifiers: Urinary tract infection type: site unspecified Hematuria presence: without hematuria Qualified Code(s): N39.0 - Urinary tract infection, site not specified (2) Rhabdomyolysis Conclusion/Plan: Hydrate with 0.9 normal saline. Recheck daily. Recheck renal function daily. CPK 3446> 2252>1127>766 Qualifiers: Rhabdomyolysis type: non-traumatic Qualified Code(s): M62.82 - R habdomyolysis (3) Dehydration Conclusion/Plan: As manifested by dryness and poor oral mucosa integrity. Creatinine is stable. BUN is elevated. Treat with IV fluids for hydration until she can eat on her own. Creatinine has gone from 0.9>0.6>0.5 On a regular diet but not awake enough to eat so food intake had been 0%. She ate 75% of her dinner 10/5, and 75% of meals 10/6. Today she is eating 100% (4) Atrial fibrillation with RVR/acute on chronic congestive heart failure NYHA Class II. Conclusion/Plan: On anticoagulation in the form of Eliquis. Her last prescription was filled in September 2017 for a 90-day supply. She was continued on a diltiazem drip to control her rate with prn lopressor and she has had 4 doses of that since 12/12. Echocardiogram done December 12 shows a have an ejection fraction of 40-45%. Severe increase in left atrial volume index when compared to previous echo. Mild to moderate right atrial enlargement. Moderate mitral regurgitation. Moderate tricuspid regurgitation. Moderately abnormal right heart pressures. Mild to moderate pulmonic regurgitation. Negative for atrial shunt. Plan: Transferred to ICU from emergency room. Transitioned to oral diltiazem and oral metoprolol 12/14 but I lowered her usual metoprolol dose for now since she was now on dilt AND lopressor AND dig. Rate is now over controlled and is <110 goal, but also fabian at times with sinus pauses. Her fluid status is stable with hydration. 2 sets of troponin were 0.08. Was being anticoagulated with Lovenox. Back to [facility] on 12/13. Digoxin loaded 12/13 and she was still tachy to 120's 12/14 morning with cardizem drip, digoxin IV and prn lopressor but transitionws to oral now. Tele does show rhythm oversuppression. I did give Lasix x1 dose and stopped IV fluids for the right sided heart pressures yesterday. BNP 479 12/14. Today I will stop dig. Cut back on cardizem to 30 po tid from 60 mg. Stay on same metoprolol 50 mg po bid (at home on 100 and 150). (5) Abnormal CT scan, neck Conclusion/Plan: Discussed with radiology what the next step was with regards to the rotation and doing need to be concerned. While her signs on physical exam show late ralization and left gaze deviation, neck does not appear stiff or painful.A repeat CT of the neck was done 12/12 and there is no fracture. She was cleared to have her C-spine collar taken off. (6) Hypokalemia Conclusion/Plan: supplemented IV and also given 2 grams Mg. She has a hx of possible alcohol abuse so received bannana bag and vitamin. Today she is 3.4 rom 3.3 yesterday and will need more K+. Yesterday Calcium and Phos replaced for hypoca lcemia, and hypophsphatemia as well. (7) Weakness PT eval done now that she is more awake. This has been a severe illness for her and I anticipate she will need rehab. If a physical therapy evaluation does recommend rehab, her 2 daughters have requested that she go to [place] for a long term facility rehab there. 12/13 PT note: Pt. has made significant progress in her mobility since this AM session. Good progression with independence in bed mobility. She does require tactile and repeated verbal cues for task execution. Sit<>stand with multiples cues for hand placement as she wants to pull to stand. Progress transfer and gait training to improve her independence with functional mobility. Recommend at D/C, patient transfer to SNF close to her family in [place] for continued PT for strengthening, gait, and transfer training. 12/14 PT note:Pt advancing well with fww and balance - post heel response with limited toe off during gait and pt balance is fair- with required FWW at this time. Pt shows good potential to advance further balance and gait to isolate forward plane and stability w/o lob and gait tolerance progression w/ monitoring of vitals. Pt goal to go to [place] with her daughter will require FWW and f/u therapy to advance independence (6) Altered mental status Impression: (8) Altered mental status Impression: Resolved. Present on admission: She appeared to have left gaze neglect, grabbing at things that are not there, and had to be restrained in the emergency room for her own sake. Today she is alert, a little forgetful, but her personality definitely shines thru. She has atrial fibrillation. She was on Eliquis but had not taken it for a few days in preparation for a dental procedure. CT of the head was negative. However, this poor unfortunate female could still have had an embolic stroke then may have fallen down because of weakness, and then developed urinary incontinence, fecal incontinence with a UTI and rhabdo. She was evaluated as a possible stroke. Urinary tract infection and rhabdo with dehydration was treated as well. By 12/11 she has stopped having left gaze neglect. Head is now at the midline. She had woken up 12/12 and spoke in full sentences to her daughters but then goes back to sleep and is quite sleepy sedated with Ativan and snoring. By 12/13 chatty and today even more so. Delightful lady. Now that the MRI and CAT scan of the head of been done, no strokes seen. This patient just may have metabolic encephalopathy from infection, alcohol. Plan: IV fluids can be stopped since she is alert enough to eat and drink IV antibiotics for infection MRI of the head ordered since CT was negative. MRI does not show embolic stroke. She has diffuse white matter disease, mild atrophy. No brainstem stroke. Chest x-ray showed cardiomegaly but no infiltrate. Phone call out to Dr. Pyle on admission. Wanted to verify past medical history and past functional status. Dr. Pyle did call me 12/12 morning. At this time it was able to get a better history from the daughters, and I thank Dr. Pyle for her return phone call. Transfer from ICU to Med surg status 12/14
[2017-12-15] MEDS: cefTRIAXone 2 GM in SODIUM CHLORIDE 0.9% MINIBAG 100 ML IV SCH (08:53)
[2017-12-15] MEDS ORDERED: DIGOXIN 125 MCG TABLET PO SCH (09:00)
[2017-12-15] MEDS: diltiaZEM 30 MG TABLET PO SCH ×2 (13:01→18:12)
[2017-12-15] MEDS: SODIUM CHLORIDE FLUSH 0.9% 10 ML SYRINGE IVP PRN (18:12)
[2017-12-16] MEDS: diltiaZEM 30 MG TABLET PO SCH ×3 (00:33→12:07)
[2017-12-16] MEDS: SODIUM CHLORIDE FLUSH 0.9% 10 ML SYRINGE IVP PRN (00:35)
[2017-12-16] MEDS: SODIUM CHLORIDE FLUSH 0.9% 10 ML SYRINGE IVP SCH ×2 (00:35→08:21)
[2017-12-16 06:12] LABS: BASOPHILS % (AUTO) 0.2 %; EOSINOPHILS # (AUTO) 0.1 10^3/uL (0.0-0.7); EOSINOPHILS % (AUTO) 1.4 %; HGB - HEMOGLOBIN 13.5 g/dL (12.0-16.0); LYMPHOCYTES # (AUTO) 0.6 10^3/uL (1.5-3.5); LYMPHOCYTES % (AUTO) 8.1 %; MEAN CORPUSCULAR HEMOGLOBIN 34.8 pg (27.0-31.0); MEAN CORPUSCULAR HGB CONC 35.3 g/dL (32.0-36.0); MEAN CORPUSCULAR VOLUME 98.8 fL (81.0-99.0); MEAN PLATELET VOLUME 7.8 fL (7.9-10.8); MONOCYTES # (AUTO) 0.9 10^3/uL (0.0-1.0); MONOCYTES % (AUTO) 12.8 %; NEUTROPHILS # (AUTO) 5.7 10^3/uL (1.5-6.6); NEUTROPHILS % (AUTO) 77.5 %; PLT - PLATELET COUNT 159 10^3/uL (130-450); RED BLOOD COUNT 3.87 10^6/uL (4.20-5.40); RED CELL DISTRIBUTION WIDTH 14.8 % (12.0-15.0); WHITE BLOOD COUNT 7.3 x10^3/uL (4.8-10.8)
[2017-12-16 06:27] LABS: ALBUMIN 3.5 g/dL (3.2-5.5); ALBUMIN/GLOBULIN RATIO 1.2 (1.0-2.2); ALKALINE PHOSPHATASE 51 IU/L (42-121); ALT ALANINE AMINOTRANSFERASE 50 IU/L (10-60); AST ASPARTATE AMINOTRANSFERASE 63 IU/L (10-42); BILIRUBIN,TOTAL 0.8 mg/dL (0.2-1.0); BUN - BLOOD UREA NITROGEN 10 mg/dL (6-20); CALCIUM 8.9 mg/dL (8.5-10.3); CARBON DIOXIDE - CO2 30 mmol/L (21-32); CHLORIDE 98 mmol/L (101-111); CREATININE 0.6 mg/dL (0.4-1.0); GFR - MDRD 96 (>89); GLUCOSE 114 mg/dL (70-100); SODIUM 135 mmol/L (135-145); TOTAL PROTEIN 6.5 g/dL (6.7-8.2)
--- NOTE | 2017-12-16 06:59 | Discharge Plan ---
"Discharge Plan for SNF / [facility] - Discharge Plan And Transition Orders Disposition: 03 SNF DC/Xfer Condition: Good Allergies and Adverse Reactions: Allergies Allergy/AdvReac Type Severity Reaction Status Date / Time Penicillins Allergy Severe Respiratory Verified 06/14/13 08:35 Sulfa (Sulfonamide AdvReac Severe Rash Verified 06/14/13 08:35 Antibiotics) contrast dyes Allergy Severe Hives Uncoded 06/14/13 08:35 - SNF / [facility] Transition Orders Admit to (Facility): [facility] Discharge Diagnosis: 1. Metabolic encephalopathy. Resolved. Due to dehydration, rhabdomyolysis, UTI. 2. E. coli UTI resistant to Cipro. Status post 7 days antibiotics 3. Rhabdomyolysis resolved 4. Dehydration resolved 5. Atrial fibrillation with RVR now rate controlled 6. Acute on chronic systolic congestive heart failure [place] Heart Association class II. Ejection fraction 40-45%. Severe increased left atrial volume index. Moderate right atrial enlargement. Moderate mitral regurgitation. Moderate tricuspid regurgitation. Moderately abnormal right heart pressures. 7. Generalized weakness due to severe illness Medicare Certification Statement: I certify that [facility] Hospital snf care is medically necessary on a continuing basis for any of the conditions for which she/he is receiving care during hospitalization. Notify PCP of admission and forward orders to primary provider for signature. Weight on admission and: Monthly Call PCP immediately if weight increases by: 2.268 kg Other Notification Orders: Call PCP immediately if patient develops dyspnea, chest pain/tightness or edema. House Bowel Program: Yes Additional Bowel Program Orders: If no BM after 2 days, nurse may give M.O.M. 30ml PO PRN and/or ducolax Supp 1 [place] and/or KETAN 250mg P.O., and/or senna 1-2 tabs PO. On day 3 nurse may give repeat above order until residents constipation is resolved. Annual Influenza Vaccine (between Nov 09 and June 08): Yes Two-step PPD per [facility] [phone] or approved exception documents: Yes Treatments & Other Orders: EKG in one week. Medication Orders: PLEASE REFER TO THE DISCHARGE MEDICATION LIST. Insulin Orders?: No - Medications New Prescriptions: diltiaZEM CD [Cardizem Cd] 120 mg PO DAILY #1 capsule - Diet Type: Geriatric Texture: Regular Liquids: Thin May have monthly special meal: Yes - Therapies | Activity Therapy: Evaluation | Treat if indicated: PT, OT Rehabilitation Potential: Return to independent living Activity: Activity as Tolerated Weight Bearing: Full Weight Additional Instructions: The patient was admitted to the hospital after being found down. It was estimated she was down from 1-1/2-2 days. She had a severe urinary tract infection with E. coli, severely dehydrated, and had rhabdomyolysis. She also had afib w RVR and ECHO shows EF 40-45%. She had a left-sided neglect when she presented and was felt that she may have had a stroke. However CT of the head and MRI are negative. Echocardiogram showed mild congestive heart failure. Atrial fibrillation was rate controlled with the addition of Cardizem. Medications have been adjusted because of bradycardia. She has completed her treatment for E coli UTI. She is very weak and deconditioned and will need rehab for an uncertain length of time. Plan is for her to be discharged to home after rehab. Please do an EKG in a week to make sure 2nd or 3rd degree block is not present with combination beta and calcium channel kacy."
[2017-12-16] MEDS: cefTRIAXone 2 GM in SODIUM CHLORIDE 0.9% MINIBAG 100 ML IV SCH (08:21)
[2017-12-16] MEDS: APIXABAN 5 MG TABLET PO SCH (08:21)
[2017-12-16] MEDS: PRENATAL VITAMIN TABLET PO SCH (08:21)
[2017-12-16] MEDS: POLYETHYLENE GLYCOL 3350 17 GM PACKET PO SCH ×2 (08:22→09:07)
[2017-12-16 08:23] VITALS: BP 149/81
[2017-12-16] MEDS ORDERED: METOPROLOL SUCCINATE 50 MG TABLET PO SCH (09:00)
--- NOTE | 2017-12-17 02:20 | DISCHARGE SUMMARY ---
Physician: Magui Esteban MD DATE OF ADMISSION: 12/11/2017 DATE OF DISCHARGE: 12/16/2017 DISCHARGE DIAGNOSES 1. Metabolic encephalopathy. 2. Escherichia coli urinary tract infection. 3. Rhabdomyolysis. 4. Dehydration. 5. Fall in home. 6. Atrial fibrillation with rapid ventricular response. 7. Acute on chronic systolic congestive heart failure, [place] Heart Association II. 8. Abnormal CT of neck. 9. Hypokalemia. 10. Weakness, generalized. MEDICATIONS ON TRANSFER 1. Tylenol 650 mg p.o. q.4 hours p.r.n. fever, pain or headache. 2. Eliquis 5 mg p.o. b.i.d. 3. Cardizem CD 120 mg p.o. daily. 4. Toviaz 4 mg p.o. daily. 5. Cozaar 50 mg daily. 6. Metoprolol succinate 50 mg p.o. b.i.d. 7. vitamin 1 tablet daily. 9. Zolpidem 5 mg p.o. q.p.m. PRINCIPAL PROCEDURES 1. Urine culture growing Escherichia coli sensitive to cefepime, ceftriaxone, ertapenem, gentamicin, imipenem, nitrofurantoin, tetracycline, tobramycin, and Bactrim. Resistant to all else. 2. Blood culture growing out Escherichia coli, Staphylococcus lugdunensis, and Staphylococcus epidermidis. Escherichia coli was resistant to amoxicillin, ampicillin, cefazolin, cefuroxime, Cipro, Levaquin, piperacillin, and Bactrim. Staphylococcus lugdunensis was sensitive to everything. Staphylococcus epidermidis was sensitive only to gentamicin, linezolid, and oxacillin. Second set of blood cultures was negative. 3. Cervical spine CT on December 11 had rotatory malalignment of C1 on C2. Otherwise, no other changes. A repeat CT was done the next day to clear her neck, and repeat CT did not show fracture. There was normal alignment demonstrated at C1-C2, and collar was able to be removed. 4. Head CT was negative for acute intraparenchymal changes. Chest x-ray had cardiomegaly without diffuse disease. 5. Brain MRI had no acute mass, acute infarct, or acute hemorrhage. She had subgaleal soft tissue swelling centered over the high posterior right parietal convexity. 6. Echocardiogram: Left ventricular ejection fraction 40% to 45%. Severe increase in the left atrial volume index. Mild to moderate right atrial enlargement. Moderate mitral regurgitation. Moderate tricuspid regurgitation. Moderately abnormal right heart pressures. Mild to moderate pulmonic regurgitation. Negative for atrial shunt. HOSPITAL COURSE: This is a [place] elderly woman who still lives in her own home. She has 2 daughters, and both of them live in [place]. She is a very active person in her community and plays bridge regularly and has a strong social network here on the [place]. She is fiercely independent, still drives her own car, cleans her own house, pays her own bills. She last spoke to her daughter on December 09. On December 11, after she did not show up for a bridge game, her friends went over to her house to look for her. She was found down on the floor. She had been incontinent of stool and urine. She had vomited, and hand and face were partially in the emesis on the floor. She was breathing, with a pulse, but unresponsive. She was brought to the hospital and evaluated with a CT of the head looking for subdural or stroke. Labs showed her to be hypokalemic, elevated BUN, anion gap 14. Total bilirubin was 2.2, AST 134, and CK was 3446 with a troponin of 0.08. Lactic acid was 2.3. EKG showed atrial fibrillation with rapid ventricular response. White cell count was 20.9, hemoglobin 15. Urinalysis had proteinuria, occult blood, hyperbilirubinemia, leukocyte esterase, red cells that are too numerous to count, white cells, rare squamous cell, and many bacteria. Chest x-ray was negative for infiltrate. On examination, she began to wake up, had a left gaze deviation, was reaching for things that were not there. As she was slowly hydrated in the emergency room, she became more alert, and the eyes were open, but she was not following commands, unable to verbalize. She was started on a diltiazem drip because of the atrial fibrillation and placed in the ICU. The patient presented as a severe metabolic encephalopathy. We felt that it was due to infection and dehydration as well as rhabdomyolysis after falling on the floor. Why she fell on the floor was unclear. When the patient was now alert enough to tell us what happened, she could not remember anything. She remembered that evening, remembered serving herself a glass of wine, but does not remember anything else. She was going to sit down and have her dinner and do her nightly exercises. That is all she remembered. In any case, her metabolic encephalopathy gradually, and then,eventually, completely cleared. She was left with profound generalized weakness in this elderly person who had fallen down in her home and was down on the ground for close to 2 days. Urinary tract infection was identified with Escherichia coli. Blood cultures were also positive, with 2 types of staphylococcus as well as Escherichia coli. Antibiotics were adjusted. She initially received ciprofloxacin, but when cultures came back resistant to Cipro, she was changed to Rocephin. She had a total of 7 days of antibiotic therapy. She was considered VERY ALLERGIC TO PENICILLIN AND HAD ANAPHYLACTIC REACTION IN THE PAST but tolerated the Rocephin without rash or reaction. The patient's white cell count became normal. She does have mild urinary urgency and retention that she says is chronic for her. She usually takes Toviaz for that. Rhabdomyolysis improved with aggressive IV fluids. She initially started out at 3446 and by the day before discharge was 766. She had severely dry oral mucosa and poor oral mucosa integrity. BUN was slightly elevated, and creatinine was stable. She was able to be hydrated and have oral mucosa, then wake up, then started to eat on her own. By the time of discharge, she was eating up to 75% of her food. Creatinine went from 0.9 to 0.5. Atrial fibrillation with rapid ventricular response was problematic. That is the main reason she went to the ICU on a diltiazem drip. Echocardiogram was done and showed an ejection fraction that was 40% to 45%. Large left atria and moderate right atria. Moderate mitral and tricuspid regurgitation with abnormal heart pressures. In the ICU, she received IV diltiazem and then transitioned to oral diltiazem. Her usual metoprolol was also resumed but at a much reduced dose because of fears of interaction between metoprolol and diltiazem. Nevertheless, the patient continued to have rapid ventricular response and required digoxin being added. Once she was transitioned to oral diltiazem, metoprolol, and digoxin, rate slowed down below 80, and she was starting to have pauses. As such, digoxin was stopped, and oral diltiazem doses were cut in half from 60 q.i.d. to 30 q.i.d. At discharge, she is transitioned to diltiazem 120 mg p.o. daily. Her outpatient metoprolol doses initially were 100 in the morning and 150 mg in the afternoon; that was also reduced to 50 mg p.o. b.i.d. Because this patient is having pauses that are asymptomatic in the ICU, she should be evaluated for the use of her diltiazem, not only because of the interaction with metoprolol but also because of her left ventricular ejection fraction. She will need an EKG in a week. She will be resumed on her Eliquis for anticoagulation. Abnormal CT of the neck initially demonstrating possible fracture or malalignment. Repeat CT was negative. Hypokalemia was treated and resolved with supplementation. Generalized weakness was evaluated and treated by Physical Therapy. They recommended that she be discharged to a group home facility to improve her status. Plan is for her to return to independent living. She is discharged in stable condition. PHYSICAL EXAMINATION VITAL SIGNS: Temperature 36.8, pulse 82, blood pressure 149/81, respirations 18, 94% on room air. GENERAL: She is a short-statured, tiny elderly female who is absolutely delightful, with a phenomenal personality. NECK: Supple. Oral mucosa is now completely normal. LUNGS: Clear to auscultation and percussion. She has a slow irregular rate and rhythm with soft systolic ejection murmur at the left lower sternal border. ABDOMEN: Soft, nontender. No organomegaly. EXTREMITIES: Feet have no edema. Greater than 30 minutes was spent coordinating discharge, as this patient is discharged to [facility] transitional care unit. cc: Kat Pyle MD TD: 12/16/2017 15:34 MTDD
== END 2017-12-16 13:29 | DRG 70 ==
LOC: EDUNIT# → ED 14:39 → ICU 17:13 → MS2 12-15 19:07
PROVIDERS: ADMIT Specialist; ATTEND Specialist
PROC: 02HV33Z Insertion of Infusion Device into Superior Vena Cava, Percutaneous Approach (ICD-10-PCS; principal; 2017-12-12)
DX: G93.41 Metabolic encephalopathy (principal); R41.0 Disorientation, unspecified; I50.23 Acute on chronic systolic (congestive) heart failure; M62.82 Rhabdomyolysis; R40.2422 Glasgow coma scale score 9-12, at arrival to emergency department; I11.9 Hypertensive heart disease without heart failure; N39.0 Urinary tract infection, site not specified; I11.0 Hypertensive heart disease with heart failure; E86.0 Dehydration; I48.91 Unspecified atrial fibrillation; E87.6 Hypokalemia; B96.20 Unspecified Escherichia coli [E. coli] as the cause of diseases classified elsewhere; B95.7 Other staphylococcus as the cause of diseases classified elsewhere; Z16.24 Resistance to multiple antibiotics; I08.1 Rheumatic disorders of both mitral and tricuspid valves; R39.15 Urgency of urination; R33.9 Retention of urine, unspecified; I95.9 Hypotension, unspecified; E83.51 Hypocalcemia; E83.39 Other disorders of phosphorus metabolism; I49.5 Sick sinus syndrome; T44.7X5A Adverse effect of beta-adrenoreceptor antagonists, initial encounter; T46.0X5A Adverse effect of cardiac-stimulant glycosides and drugs of similar action, initial encounter; T46.1X5A Adverse effect of calcium-channel blockers, initial encounter; Z91.81 History of falling; Z79.899 Other long term (current) drug therapy; Z78.1 Physical restraint status; Z88.0 Allergy status to penicillin; Z79.01 Long term (current) use of anticoagulants
CPT/HCPCS: 36410; 36415; 51702; 70450; 70551; 71045; 72125; 80048; 80053; 80306; 80307; 80320; 80329; 81001; 81003; 82040; 82330; 82550; 83605; 83690; 83735; 83880; 84100; 84484; 85025; 85610; 85730; 87040; 87077; 87086; 87150; 87181; 93005; 93306; 96374; 99285; 99291

== ENCOUNTER 2018-01-26 08:45 | Emergency (ER) | payer MEDICARE, OTHER ==
[2018-01-26 09:08] LABS: BILIRUBIN,URINE NEGATIVE (NEGATIVE); GLUCOSE, URINE (UA) NEGATIVE (NEGATIVE); KETONES,URINE (UA) NEGATIVE (NEGATIVE); LEUKOCYTE ESTERASE, URINE LARGE (NEGATIVE); NITRITE,URINE POSITIVE (NEGATIVE); OCCULT BLOOD,URINE SMALL (NEGATIVE); PH,URINE 6.5 PH (5.0-7.5); PROTEIN,URINE TRACE mg/dL (NEGATIVE); UROBILINOGEN,URINE 0.2 (NORMAL) E.U./dL (NORMAL)
[2018-01-26 09:12] LABS: CLARITY,URINE CLOUDY (CLEAR)
[2018-01-26 09:13] LABS: BACTERIA,URINE Many /HPF (None Seen); RBC,URINE 0-5 /HPF (0-5); SQUAMOUS EPITHELIAL CELL,UR FEW Squamous (<= Few); WBC CLUMPS,URINE PRESENT
[2018-01-26] MEDS ORDERED: cefTRIAXone 1 GM in SODIUM CHLORIDE 0.9% MINIBAG 100 ML IV STA (09:39)
[2018-01-26] MEDS ORDERED: diltiaZEM INJ 5 MG/ML VIAL IVP STA (09:39)
--- NOTE | 2018-01-26 09:43 | ED Physician Documentation ---
History of Present Illness - Stated complaint Stated Complaint: FEMALE - Chief complaint Chief Complaint: UTI - History obtained from History obtained from: Patient - History of Present Illness Timing: Yesterday (This is a [place] 82-year-old woman with history of urosepsis due to E. coli a couple of months ago and chronic atrial fibrillation who presents with cloudy and foul-smelling urine for the last day or so. She denies any other symptoms with it. Specifically she denies abdominal pain, dysuria, back pain, dizziness, fevers or chills. She was quite sick on the last visit and had blood cultures positive as well. She does not feel nearly as sick this time. She has normal mental status right now and she says that she does not remember the first 5 days in the hospital on her last visit and she arrived unconscious.) Review of Systems Ten Systems: 10 systems reviewed and negative Constitutional: denies: Fever, Chills, Fatigue Cardiac: denies: Chest pain / pressure, Palpitations Respiratory: denies: Dyspnea, Cough GI: denies: Abdominal Pain, Nausea PD PAST MEDICAL HISTORY - Past Medical History Cardiovascular: Hypertension, Atrial fibrillation Respiratory: None Neuro: None Endocrine/Autoimmune: None GI: Chronic diarrhea STATOR TESTER: Other : None HEENT: Chronic vision loss Psych: None Musculoskeletal: Chronic back pain, Other Derm: Eczema - Past Surgical History Past Surgical History: Yes General: Colonoscopy /STATOR TESTER: Hysterectomy HEENT: Cataracts - Present Medications Home Medications: Ambulatory Orders Medication Instructions Recorded Confirmed Acetaminophen [Tylenol] 650 mg PO Q4HR PRN tablet 12/16/17 Apixaban [Eliquis] 5 mg PO BID #0 12/16/17 12/11/17 Fesoterodine Fumarate [Toviaz] 4 mg PO DAILY #0 12/16/17 12/11/17 Losartan [Cozaar] 50 mg PO DAILY #0 12/16/17 12/11/17 Metoprolol Succinate [Toprol Xl] 50 mg PO BID tablet 12/16/17 Vitamin [Trinatal Rx 1] 1 tab PO DAILYWM tablet 12/16/17 Zolpidem Tartrate 5 mg PO QPM PRN #1 12/16/17 12/11/17 diltiaZEM CD [Cardizem Cd] 120 mg PO DAILY #1 capsule 12/16/17 Doxycycline Hyclate 100 mg PO BID #14 tablet 11/18/18 - Allergies Allergies/Adverse Reactions: Allergies Allergy/AdvReac Type Severity Reaction Status Date / Time Penicillins Allergy Severe Respiratory Verified 01/26/18 08:54 Sulfa (Sulfonamide AdvReac Severe Rash Verified 01/26/18 08:54 Antibiotics) contrast dyes Allergy Severe Hives Uncoded 01/26/18 08:54 - Social History Does the pt smoke?: No Smoking Status: Never smoker Does the pt drink ETOH?: Yes ETOH Use: Wine Does the pt have substance abuse?: No - Immunizations Immunizations are current?: Yes - POLST Patient has POLST: No POLST Status: Full Code PD ED PE NORMAL - Vitals Vital signs reviewed: Yes - General General: Alert and oriented X 3, No acute distress - HEENT HEENT: PERRL, EOMI - Neck Neck: Supple, no meningeal sign, No bony TTP - Cardiac Cardiac: Other (Irregular and mildly rapid) - Respiratory Respiratory: No respiratory distress, Clear bilaterally - Abdomen Abdomen: Soft, Non tender - Back Back: No CVA TTP - Extremities Extremities: No edema, No calf tenderness / cord - Neuro Neuro: Alert and oriented X 3, Normal speech Results - Vitals Vitals: Vital Signs - 24 hr 01/26/18 01/26/18 01/26/18 08:51 09:24 09:41 Temperature 36.6 C Heart Rate 130 H 96 110 H Respiratory 18 20 18 Rate Blood Pressure 153/100 H 139/86 H 142/98 H O2 Saturation 98 97 96 01/26/18 01/26/18 10:00 10:11 Temperature Heart Rate 86 92 Respiratory 19 20 Rate Blood Pressure 148/92 H 131/97 H O2 Saturation 98 96 Oxygen O2 Source Room air - EKG (time done) 0907 Rate: Rate (enter#) (115) Rhythm: Atrial fibrillation [place]: LAD QRS: Normal Ischemia: Non specific changes Computer interpretation: Agree with computer - Labs Labs: Laboratory Tests 01/26/18 01/26/18 01/26/18 09:00 09:35 09:35 WBC 6.2 RBC 3.71 L Hgb 12.8 Hct 37.3 MCV 100.6 H MCH 34.6 H MCHC 34.4 RDW 15.5 H Plt Count 195 MPV 7.3 L Neut # (Auto) 4.6 Lymph # (Auto) 0.8 L [place] # (Auto) 0.7 Eos # (Auto) 0.1 Baso # (Auto) 0.0 Absolute Nucleated RBC 0.00 Nucleated RBC % 0.1 Sodium 137 Potassium 3.8 Chloride 105 Carbon Dioxide 25 Anion Gap 7.0 BUN 15 Creatinine 0.9 Estimated GFR (MDRD) 60 L Glucose 102 H Lactic Acid Calcium 9.1 Total Bilirubin 1.1 H AST 33 ALT 27 Alkaline Phosphatase 72 Total Protein 7.1 Albumin 4.3 Globulin 2.8 Albumin/Globulin Ratio 1.5 Lipase 21 L Urine Color YELLOW Urine Clarity CLOUDY Urine pH 6.5 Ur Specific [place] 1.010 Urine Protein TRACE Urine Glucose (UA) NEGATIVE Urine Ketones NEGATIVE Urine Occult Blood SMALL H Urine Nitrite POSITIVE H Urine Bilirubin NEGATIVE Urine Urobilinogen 0.2 (NORMAL) Ur Leukocyte Esterase LARGE H Urine RBC 0-5 Urine WBC >25 H Urine WBC Clumps PRESENT Ur Squamous Epith Cells FEW Squamous Urine Bacteria Many H Ur Microscopic Review INDICATED Urine Culture Comments INDICATED 01/26/18 09:35 WBC RBC Hgb Hct MCV MCH MCHC RDW Plt Count MPV Neut # (Auto) Lymph # (Auto) [place] # (Auto) Eos # (Auto) Baso # (Auto) Absolute Nucleated RBC Nucleated RBC % Sodium Potassium Chloride Carbon Dioxide Anion Gap BUN Creatinine Estimated GFR (MDRD) Glucose Lactic Acid 1.3 Calcium Total Bilirubin AST ALT Alkaline Phosphatase Total Protein Albumin Globulin Albumin/Globulin Ratio Lipase Urine Color Urine Clarity Urine pH Ur Specific [place] Urine Protein Urine Glucose (UA) Urine Ketones Urine Occult Blood Urine Nitrite Urine Bilirubin Urine Urobilinogen Ur Leukocyte Esterase Urine RBC Urine WBC Urine WBC Clumps Ur Squamous Epith Cells Urine Bacteria Ur Microscopic Review Urine Culture Comments PD MEDICAL DECISION MAKING - ED course ED course: This is an 82-year-old woman with history of urosepsis. Previous records were reviewed. The previous E. coli was sensitive to the third and fourth generation cephalosporins, monobactams, gent and tetracycline. This makes oral choice is somewhat hard but doxycycline was chosen she was given IV Rocephin here. She does not appears septic at this point, but labs will be checked given her history. She is in mild RVR with her A. fib and is administered 10 mg of diltiazem IV. Departure - Departure Disposition: 01 Home, Self Care Clinical Impression: Atrial fibrillation with RVR UTI (urinary tract infection) Qualifiers: Urinary tract infection type: acute cystitis Hematuria presence: without hematuria Qualified Code(s): N30.00 - Acute cystitis without hematuria Condition: Good Record reviewed to determine appropriate education?: Yes Instructions: ED UTI Cystitis Female Prescriptions: Doxycycline Hyclate 100 mg PO BID #14 tablet Comments: Follow-up with your doctor in 2 days, return sooner if you develop chills, dizziness, or any other acute symptoms. We are performing cultures of both blood and urine, if any changes are necessary in your antibiotic call you in the next few days.
[2018-01-26 09:46] LABS: BASOPHILS % (AUTO) 0.5 %; EOSINOPHILS # (AUTO) 0.1 10^3/uL (0.0-0.7); EOSINOPHILS % (AUTO) 1.1 %; HGB - HEMOGLOBIN 12.8 g/dL (12.0-16.0); LYMPHOCYTES # (AUTO) 0.8 10^3/uL (1.5-3.5); LYMPHOCYTES % (AUTO) 12.7 %; MEAN CORPUSCULAR HEMOGLOBIN 34.6 pg (27.0-31.0); MEAN CORPUSCULAR HGB CONC 34.4 g/dL (32.0-36.0); MEAN CORPUSCULAR VOLUME 100.6 fL (81.0-99.0); MEAN PLATELET VOLUME 7.3 fL (7.9-10.8); MONOCYTES # (AUTO) 0.7 10^3/uL (0.0-1.0); MONOCYTES % (AUTO) 11.9 %; NEUTROPHILS # (AUTO) 4.6 10^3/uL (1.5-6.6); NEUTROPHILS % (AUTO) 73.8 %; PLT - PLATELET COUNT 195 10^3/uL (130-450); RED BLOOD COUNT 3.71 10^6/uL (4.20-5.40); RED CELL DISTRIBUTION WIDTH 15.5 % (12.0-15.0); WHITE BLOOD COUNT 6.2 x10^3/uL (4.8-10.8)
[2018-01-26 09:58] LABS: ALBUMIN 4.3 g/dL (3.2-5.5); ALBUMIN/GLOBULIN RATIO 1.5 (1.0-2.2); BILIRUBIN,TOTAL 1.1 mg/dL (0.2-1.0); CALCIUM 9.1 mg/dL (8.5-10.3); CREATININE 0.9 mg/dL (0.4-1.0); TOTAL PROTEIN 7.1 g/dL (6.7-8.2)
[2018-01-26 10:13] VITALS: BP 131/97
== END 2018-01-26 10:26 | disposition home or self-care (01) ==
LOC: ED 08:45
DX: N30.00 Acute cystitis without hematuria (principal); I48.2 Chronic atrial fibrillation; I10 Essential (primary) hypertension; Z79.01 Long term (current) use of anticoagulants
CPT/HCPCS: 36415; 80053; 81001; 81003; 83605; 83690; 85025; 87077; 87086; 87181; 93005; 96365; 96375; 99283; 99284

== ENCOUNTER 2018-05-27 13:12 | Outpatient (CLI) | payer MEDICARE, OTHER | END 2018-05-27 13:13 | disposition home or self-care (01) | LOC: RT 13:12 | PROVIDERS: ATTEND Internal Medicine Cardiovascular Disease | DX: Z79.899 Other long term (current) drug therapy (principal) | CPT/HCPCS: 94010; 94729 ==

== ENCOUNTER 2018-05-29 13:18 | Outpatient (CLI) | payer MEDICARE, OTHER ==
--- NOTE | 2018-05-29 15:24 | Mammography Report ---
Reason: ANNUAL SCREENING Procedure Date: 05/29/2018 Accession Number: [id number] / [id number] Procedure: ELINOR - Screening Mammo Dig Bilat CPT Code: FULL RESULT: EXAM: Screening Mammo Dig Bilat DATE: 05/29/2018 1:53 PM CLINICAL HISTORY: Routine screening. No reported personal or family history of breast cancer. TECHNIQUE: Bilateral CC and MLO views were obtained. COMPARISON: 12/06/2016 through 10/16/2013 FINDINGS: The breasts demonstrate scattered fibroglandular densities bilaterally. Bilateral breasts: There are no suspicious masses, calcifications or areas of distortion. IMPRESSION: Negative examination RECOMMENDATION: Routine annual screening unless otherwise clinically indicated. BI-RADS CATEGORY 1: Negative STANDARD QUALIFYING STATEMENTS: 1. This examination was not reviewed with the aid of Computer-Aided Detection (CAD). 2. A negative or benign imaging report should not preclude biopsy if clinically suspicious findings are present. 3. Dense breasts may obscure an underlying neoplasm. 4. This examination was reviewed without the aid of 3D breast imaging (tomosynthesis).
== END 2018-05-29 13:19 | disposition home or self-care (01) ==
LOC: DI 13:18
DX: Z12.31 Encounter for screening mammogram for malignant neoplasm of breast (principal)
CPT/HCPCS: 77067

== ENCOUNTER 2018-12-21 14:23 | Emergency (ER) | payer MEDICARE, OTHER ==
--- NOTE | 2018-12-21 14:50 | ED Physician Documentation ---
PD HPI FEMALE - Stated complaint Stated Complaint: FEMALE - Chief complaint Chief Complaint: UTI - History obtained from History obtained from: Patient - History of Present Illness Timing - onset: How many weeks ago (1) Timing - duration: Weeks (1) Timing - details: Gradual onset Severity Comments: mild Associated symptoms: Back pain (left sided low back pain), Pelvic pain (pelvic fullness, not pain), Dysuria, Urinary frequency. No: Fever, Chest/shoulder pain, Abdominal pain, Vaginal pain, Vaginal bleeding, Vaginal discharge, Hematuria Similar symptoms before: Diagnosis (diagnosed with a UTI by her clinic), Other Recently seen: Clinic - Treatment prior to arrival Treatment prior to arrival: cipro for a week, just finished it Review of Systems Ten Systems: 10 systems reviewed and negative Constitutional: denies: Fever Cardiac: reports: Reviewed and negative Respiratory: reports: Reviewed and negative GI: reports: Reviewed and negative : reports: Dysuria, Frequency. denies: Hesitancy, Unable to Void, Incontinent, Discharge Skin: reports: Reviewed and negative Musculoskeletal: reports: Reviewed and negative Neurologic: reports: Reviewed and negative Immunocompromised: reports: Reviewed and negative PD PAST MEDICAL HISTORY - Past Medical History Past Medical History: Yes Cardiovascular: Hypertension, Atrial fibrillation Respiratory: None Neuro: None Endocrine/Autoimmune: None GI: Chronic diarrhea JIGSAWYER: Other : None HEENT: Chronic vision loss Psych: None Musculoskeletal: Chronic back pain, Other Derm: Eczema - Past Surgical History Past Surgical History: Yes General: Colonoscopy /JIGSAWYER: Hysterectomy HEENT: Cataracts - Present Medications Home Medications: Ambulatory Orders Medication Instructions Recorded Confirmed Acetaminophen [Tylenol] 650 mg PO Q4HR PRN tablet 12/16/17 Apixaban [Eliquis] 5 mg PO BID #0 12/16/17 12/11/17 Fesoterodine Fumarate [Toviaz] 4 mg PO DAILY #0 12/16/17 12/11/17 Losartan [Cozaar] 50 mg PO DAILY #0 12/16/17 12/11/17 Metoprolol Succinate [Toprol Xl] 50 mg PO BID tablet 12/16/17 Vitamin [Trinatal Rx 1] 1 tab PO DAILYWM tablet 12/16/17 Zolpidem Tartrate 5 mg PO QPM PRN #1 12/16/17 12/11/17 diltiaZEM CD [Cardizem Cd] 120 mg PO DAILY #1 capsule 10/08/18 Doxycycline Hyclate 100 mg PO BID #14 tablet 01/26/18 Cefpodoxime Proxetil 200 mg PO BID #20 tablet 12/21/18 - Allergies Allergies/Adverse Reactions: Allergies Allergy/AdvReac Type Severity Reaction Status Date / Time Penicillins Allergy Severe Respiratory Verified 12/21/18 14:31 Sulfa (Sulfonamide AdvReac Severe Rash Verified 12/21/18 14:31 Antibiotics) contrast dyes Allergy Severe Hives Uncoded 12/21/18 14:31 - Social History Does the pt smoke?: No Smoking Status: Never smoker Does the pt drink ETOH?: Yes ETOH Use: Wine Does the pt have substance abuse?: No - Immunizations Immunizations are current?: Yes - POLST Patient has POLST: No POLST Status: Full Code PD ED PE NORMAL - Vitals Vital signs reviewed: Yes - General General: Alert and oriented X 3, No acute distress, Well developed/nourished - HEENT HEENT: Atraumatic - Neck Neck: Supple, no meningeal sign, No JVD - Cardiac Cardiac: RRR - Respiratory Respiratory: No respiratory distress - Abdomen Abdomen: Soft, Non tender, Non distended - Female Female : Deferred - Rectal Rectal: Deferred - Derm Derm: Normal color, Warm and dry, No rash - Extremities Extremities: No deformity - Neuro Neuro: Alert and oriented X 3 Eye Opening: Spontaneous Motor: Obeys Commands Verbal: Oriented GCS Score: 15 - Psych Psych: Normal mood, Normal affect Results - Vitals Vitals: Vital Signs - 24 hr 12/21/18 12/21/18 14:31 16:02 Temperature 36.5 C 36.5 C Heart Rate 76 74 Respiratory 16 12 Rate Blood Pressure 131/79 H 136/75 H O2 Saturation 97 98 Oxygen O2 Source Room air - Labs Labs: Laboratory Tests 12/21/18 14:48 Urine Color YELLOW Urine Clarity CLOUDY Urine pH 6.0 Ur Specific [place] <=1.005 Urine Protein NEGATIVE Urine Glucose (UA) NEGATIVE Urine Ketones NEGATIVE Urine Occult Blood TRACE-INTA Urine Nitrite POSITIVE H Urine Bilirubin NEGATIVE Urine Urobilinogen 0.2 (NORMAL) Ur Leukocyte Esterase MODERATE H Urine RBC 0-5 Urine WBC >25 H Ur Squamous Epith Cells NONE SEEN Urine Bacteria Many H Ur Microscopic Review INDICATED Urine Culture Comments INDICATED PD MEDICAL DECISION MAKING - ED course Complexity details: reviewed results, re-evaluated patient, considered differential, d/w patient ED course: ddx- UTI, urinary retention, pyelonephritis, interstitial cystitis 83 y/o F with suprapubic fullness, dysuria, frequency, notcturia c/w a urinary tract infection. Pt treated with cipro for a week but symptoms have persisted. Her UA here is suggestive of a persistent infection. She has a hx of pencillin allergy remotely but given low risk of cross reactivity with 3rd generation cephalosporins will given trial of IM ceftriaxone in the ED. Monitored pt for 30 minutes and she had no adverse reaction. Will start on outpt antibiotic. Discussed return precautions in case of severe reaction or other new concerning symptoms. Departure - Departure Disposition: 01 Home, Self Care Clinical Impression: UTI (urinary tract infection) Qualifiers: Urinary tract infection type: acute cystitis Hematuria presence: with hematuria Qualified Code(s): N30.01 - Acute cystitis with hematuria Condition: Stable Record reviewed to determine appropriate education?: Yes Instructions: Urinary Tract Infecs Women Follow-Up: Kat Pyle MD [Primary Care Provider] - Within 1 week Prescriptions: Cefpodoxime Proxetil 200 mg PO BID #20 tablet Comments: You should take the prescribed medication for your UTI until complete. If worsening symptoms such as fever, vomiting or new concerns please return to the ED. Discharge Date/Time: 12/21/18 16:05
[2018-12-21 14:53] LABS: BILIRUBIN,URINE NEGATIVE (NEGATIVE); GLUCOSE, URINE (UA) NEGATIVE (NEGATIVE); KETONES,URINE (UA) NEGATIVE (NEGATIVE); LEUKOCYTE ESTERASE, URINE MODERATE (NEGATIVE); NITRITE,URINE POSITIVE (NEGATIVE); OCCULT BLOOD,URINE TRACE-INTA (NEGATIVE); PROTEIN,URINE NEGATIVE (NEGATIVE); UROBILINOGEN,URINE 0.2 (NORMAL) E.U./dL (NORMAL)
[2018-12-21 15:02] LABS: CLARITY,URINE CLOUDY (CLEAR)
[2018-12-21 15:03] LABS: BACTERIA,URINE Many /HPF (None Seen); RBC,URINE 0-5 /HPF (0-5); SQUAMOUS EPITHELIAL CELL,UR NONE SEEN (<= Few)
[2018-12-21] MEDS ORDERED: LIDOCAINE 1% 2 ML VIAL MC ONE (15:09)
[2018-12-21] MEDS ORDERED: cefTRIAXone 1 GM VIAL IM STA (15:09)
[2018-12-21 16:03] VITALS: BP 136/75
== END 2018-12-21 16:05 | disposition home or self-care (01) ==
LOC: ED 14:23
DX: N30.01 Acute cystitis with hematuria (principal); Z88.0 Allergy status to penicillin; Z88.2 Allergy status to sulfonamides; I10 Essential (primary) hypertension; I48.91 Unspecified atrial fibrillation; Z79.01 Long term (current) use of anticoagulants
CPT/HCPCS: 81001; 81003; 87077; 87086; 87181; 99283; 99284

== ENCOUNTER 2019-03-28 13:00 | Outpatient (CLI) | payer MEDICARE, OTHER ==
--- NOTE | 2019-03-29 16:06 | XRAY Report ---
Reason: UTI Procedure Date: 03/28/2019 Accession Number: [id number] / [id number] Procedure: XR - Abdomen 1 View X-Ray CPT Code: 30669 Final Report FULL RESULT: EXAM: ABDOMEN RADIOGRAPHY EXAM DATE: 03/28/2019 02:03 PM HISTORY: UTI COMPARISON: NONE TECHNIQUE: SINGLE AP VIEW FINDINGS: Unremarkable bowel gas pattern. No abnormal bowel distention. Moderate amount of stool in the colon. 3 small calcifications noted in the pelvis, probably phleboliths. No organomegaly. No signal can skeletal abnormality. IMPRESSION: Possible mild constipation. Otherwise essentially unremarkable. RADIA
--- NOTE | 2019-03-29 16:18 | Ultrasound Report ---
Reason: UTI Procedure Date: 03/28/2019 Accession Number: [id number] / [id number] Procedure: US - Retroperitoneal CPT Code: Final Report FULL RESULT: EXAM: ULTRASOUND RENAL COMPLETE EXAM DATE: 03/28/2019 02:04 PM HISTORY: UTI COMPARISON: ABDOMEN LIMITED 10/09/2017 10:52 AM TECHNIQUE: Real-time scanning was performed at the kidneys and urinary bladder with static images obtained. Color doppler utilized. FINDINGS: Right Kidney: 10.2 x 4.1 x 5.2 cm. Normal echotexture with no stones, contour-deforming masses, or hydronephrosis. Left Kidney: 11 x 4.4 x 4.4 cm. There is a superolateral cystic lesion measuring 1.7 x 2.1 x 1.7 cm. One thin septation noted within it. No other focal lesion. No calculus or hydronephrosis. Bladder: No significant asymmetry. There is some question of some minimal dependent debris. Bilateral jets seen. The prevoid bladder volume was 178 cc. The postvoid bladder volume was 148 cc. Other: None. IMPRESSION: No significant kidney abnormality. Possible minimal debris in the urinary bladder. Small micturition volume. RADIA
== END 2019-03-28 13:01 | disposition home or self-care (01) ==
LOC: DI 13:00
PROVIDERS: ATTEND Internal Medicine
DX: N39.0 Urinary tract infection, site not specified (principal)
CPT/HCPCS: 74018; 76770

== ENCOUNTER 2019-04-23 09:59 | Outpatient (CLI) | payer MEDICARE, OTHER ==
--- NOTE | 2019-04-26 01:22 | Ultrasound Report ---
Reason: ELEVATED BLOOD PRESSURE Procedure Date: 04/23/2019 Accession Number: [id number] / [id number] Procedure: US - Arterial Visceral Complete CPT Code: Final Report FULL RESULT: EXAM: RENAL ARTERY DOPPLER ULTRASOUND EXAM DATE: 04/23/2019 10:56 AM. CLINICAL HISTORY: Elevated blood pressure. COMPARISON: None. TECHNIQUE: Real-time sonographic vascular imaging was performed by the air marshal through the renal arterial system with a linear transducer utilizing color-flow, Doppler flow, and spectral analysis. Multiple junior sales representative static images were saved for review. FINDINGS: Right Kidney: 10.5 x 4.3 x 4.2 cm. Echotexture: Within normal limits. Right Segmental Artery: Upper pole: PSV 17 cm/sec, RI 0.67. Mid pole: PSV 17 cm/sec, RI 0.69. Lower pole: PSV 15 cm/sec, RI 0.69. Right Renal Artery: Origin: PSV 84 cm/sec, RA/AO 1.38. Proximal: PSV 123 cm/sec, RA/AO 2.02. Mid: PSV 130 cm/sec, RA/AO 2.13. Distal: PSV 120 cm/sec, RA/AO 1.97. Aorta PSV: 61 cm/sec. RRV Patent: Yes. Left Kidney: 10.7 x 4.9 x 4.3 cm. Echotexture: Within normal limits. Left superior lateral renal cyst measuring 1.9 x 1.8 x 2 cm, contains a thin septation, mildly complex. Left Segmental Artery: Upper pole: PSV 21 cm/sec, RI 0.71. Mid pole: PSV 17 cm/sec, RI 0.67. Lower pole: PSV 26 cm/sec, RI 0.78. Left Renal Artery: Origin: PSV 64 cm/sec, RA/AO 1.05. Proximal: PSV 88 cm/sec, RA/AO 1.44. Mid: PSV 81 cm/sec, RA/AO 1.33. Distal: PSV 70 cm/sec, RA/AO 1.15. LRV Patent: Yes. IMPRESSION: No evidence for renal artery stenosis. See above. Left superior lateral renal cyst measuring 2 cm, contains a thin septation, mildly complex. CRITERIA FOR CLASSIFICATION OF RENAL ARTERY (RA) DISEASE BY DUPLEX SCANNING: RA Diameter Reduction/ RA PSV/ RAR: Normal, < 180 cm/sec, < 3.5 < 60%, >= 180 cm/sec, < 3.5 >= 60%, >= 180 cm/sec, >= 3.5 Total Occlusion: Undetectable; Not applicable RADIA
== END 2019-04-23 10:00 | disposition home or self-care (01) ==
LOC: DI 09:59
PROVIDERS: ATTEND Internal Medicine
DX: R03.0 Elevated blood-pressure reading, without diagnosis of hypertension (principal); Q61.01 Congenital single renal cyst
CPT/HCPCS: 93975

== ENCOUNTER 2019-08-07 07:58 | Outpatient (CLI) | payer MEDICARE, OTHER | END 2019-08-07 07:59 | disposition home or self-care (01) | LOC: DI 07:58 | PROVIDERS: ATTEND Internal Medicine | DX: I48.20 Chronic atrial fibrillation, unspecified (principal); I34.0 Nonrheumatic mitral (valve) insufficiency; I07.1 Rheumatic tricuspid insufficiency; I37.1 Nonrheumatic pulmonary valve insufficiency; I27.20 Pulmonary hypertension, unspecified | CPT/HCPCS: 93306 ==

== ENCOUNTER 2019-08-19 09:04 | Outpatient (CLI) | payer MEDICARE, OTHER ==
--- NOTE | 2019-08-19 14:51 | Mammography Report ---
BILATERAL DIGITAL SCREENING MAMMOGRAM 3D/2D: 08/19/2019 CLINICAL: Routine screening. Comparison is made to exams dated: 05/29/2018 mammogram, 11/28/2016 mammogram, and 11/14/2015 mammogram - [facility]. There are scattered fibroglandular elements in both breasts. No significant masses, calcifications, or other findings are seen in either breast. There has been no significant interval change. IMPRESSION: NEGATIVE There is no mammographic evidence of malignancy. A 1 year screening mammogram is recommended. This exam was interpreted at Station ID: [id number]. NOTE: For mammograms, a report in lay terms will be sent to the patient. Approximately 15% of breast malignancies will not be visualized mammographically. In the management of a palpable breast mass, a negative mammogram must not discourage biopsy of a clinically suspicious lesion. Electronically Signed By: Marva barrera/mauricio:08/19/2019 12:16:48 ACR BI-RADS Category 1: Negative [id number] PARENCHYMAL PATTERN: (A) - The breast(s) demonstrate(s) scattered fibroglandular densities. BI-RADS CATEGORY: (1) - 1 RECOMMENDATION: (ANNUAL) - Recommend routine annual screening mammography. [id number] 1 year screening LATERALITY: (B)
== END 2019-08-19 09:05 | disposition home or self-care (01) ==
LOC: DI 09:04
DX: Z12.31 Encounter for screening mammogram for malignant neoplasm of breast (principal)
CPT/HCPCS: 77067

== ENCOUNTER 2019-09-02 14:18 | Outpatient (CLI) | payer MEDICARE, OTHER ==
--- NOTE | 2019-09-02 17:07 | Ultrasound Report ---
PROCEDURE: Carotid Doppler Complete INDICATIONS: L HAND NUMBNESS TECHNIQUE: Color and pulse Doppler interrogation was performed of both carotid systems, with image documentation and velocity measurements. COMPARISON: None. FINDINGS: Right side: Common carotid artery peak systolic velocity: 63 cm/sec. Internal carotid artery peak systolic velocity: 66 cm/sec. Internal carotid artery end diastolic velocity: 18 cm/sec. External carotid artery peak systolic velocity: 63 cm/sec. ICA/CCA peak systolic ratio: 1.1 . [place]ijer[place] scale imaging description: Mild plaque at the bifurcation. Percent internal carotid artery stenosis: Less than 50% . Vertebral artery: Flow direction is antegrade. Left side: Common carotid artery peak systolic velocity: 66 cm/sec. Internal carotid artery peak systolic velocity: 69 cm/sec. Internal carotid artery end diastolic velocity: 23 cm/sec. External carotid artery peak systolic velocity: 72 cm/sec. ICA/CCA peak systolic ratio: 1.1 . [place] scale imaging description: Mild plaque at the bifurcation Percent internal carotid artery stenosis: Less than 50% . Vertebral artery: Flow direction is antegrade. IMPRESSION: Less than 50% stenosis of the internal carotid arteries bilaterally. The estimate of stenosis included in the report of the imaging study was calculated using the NASCET method Reviewed by: Raegan Spears MD on 09/02/2019 5:05 PM PDT Approved by: Raegan Spears MD on 09/02/2019 5:05 PM PDT Station ID: [id number]
== END 2019-09-02 14:19 | disposition home or self-care (01) ==
LOC: DI 14:18
PROVIDERS: ATTEND Internal Medicine
DX: R20.2 Paresthesia of skin (principal)
CPT/HCPCS: 93880

== ENCOUNTER 2020-02-29 10:46 | Outpatient (CLI) | payer MEDICARE, OTHER ==
--- NOTE | 2020-02-29 11:39 | Ultrasound Report ---
PROCEDURE: Duplex Ext Veins Left INDICATIONS: L LOWER LEG PAIN TECHNIQUE: Real-time imaging, as well as color and pulse Doppler interrogation, were performed of the lower extr emity deep veins from the inguinal ligament to the popliteal fossa. COMPARISON: None. FINDINGS: The deep veins are normally compressible, and free of intraluminal thrombus. Color and pu lse Doppler demonstrate normal phasic intraluminal flow. There is normal augmentation response to di stal compression maneuver. It is noted area of concern in the lateral calf corresponds to a varicose vein. IMPRESSION: 1. No deep venous cirrhosis. 2. Area of proximal calf corresponds to a varicose vein. Cannot exclude superficial thrombophlebitis. Reviewed by: Raegan Spears MD on 02/29/2020 11:38 AM PST Approved by: Raegan Spears MD on 02/29/2020 11:38 AM PST Station ID: [id number]
== END 2020-02-29 10:47 | disposition home or self-care (01) ==
LOC: DI 10:46
PROVIDERS: ATTEND Internal Medicine
DX: M79.662 Pain in left lower leg (principal); I83.92 Asymptomatic varicose veins of left lower extremity

== ENCOUNTER 2020-05-28 19:26 | Outpatient (CLI) | payer MEDICARE, OTHER | END 2020-05-28 19:27 | disposition critical access hospital (66) | LOC: EMS 19:26 | PROVIDERS: ATTEND Emergency Medicine | DX: I10 Essential (primary) hypertension (principal) | CPT/HCPCS: A0425; A0429 ==

== ENCOUNTER 2020-05-28 19:52 | Emergency (ER) | payer MEDICARE, OTHER ==
[2020-05-28 20:59] LABS: BASOPHILS % (AUTO) 0.3 %; EOSINOPHILS % (AUTO) 0.6 %; HCT - HEMATOCRIT 42.3 % (37.0-47.0); HGB - HEMOGLOBIN 14.2 g/dL (12.0-16.0); LYMPHOCYTES # (AUTO) 0.6 10^3/uL (1.5-3.5); LYMPHOCYTES % (AUTO) 8.1 %; MEAN CORPUSCULAR HEMOGLOBIN 35.4 pg (27.0-31.0); MEAN CORPUSCULAR HGB CONC 33.6 g/dL (32.0-36.0); MEAN CORPUSCULAR VOLUME 105.5 fL (81.0-99.0); MEAN PLATELET VOLUME 8.9 fL (7.9-10.8); MONOCYTES # (AUTO) 0.7 10^3/uL (0.0-1.0); MONOCYTES % (AUTO) 10.4 %; NEUTROPHILS # (AUTO) 5.5 10^3/uL (1.5-6.6); PLT - PLATELET COUNT 216 10^3/uL (130-450); RED BLOOD COUNT 4.01 10^6/uL (4.20-5.40); RED CELL DISTRIBUTION WIDTH 12.3 % (12.0-15.0); WHITE BLOOD COUNT 6.9 x10^3/uL (4.8-10.8)
--- NOTE | 2020-05-28 21:07 | XRAY Report ---
PROCEDURE: Chest 1 View X-Ray INDICATIONS: Chest pain TECHNIQUE: One view of the chest was acquired. COMPARISON: 12/21/2017 FINDINGS: Surgical changes and devices: None. Lungs and pleura: No pleural effusions or pneumothorax. Lungs are clear. Mediastinum: Mediastinal contours appear normal. Heart size is normal. Bones and chest wall: No suspicious bony lesions. Overlying soft tissues appear unremarkable. IMPRESSION: No acute cardiopulmonary process demonstrated radiographically. Reviewed by: Israel Saini MD on 05/28/2020 9:05 PM PDT Approved by: Israel Saini MD on 05/28/2020 9:05 PM PDT Station ID: [id number]
[2020-05-28 21:15] LABS: ALBUMIN 4.7 g/dL (3.2-5.5); ALBUMIN/GLOBULIN RATIO 1.3 (1.0-2.2); BILIRUBIN,TOTAL 0.6 mg/dL (0.2-1.0); POTASSIUM 3.5 mmol/L (3.5-5.0); TOTAL PROTEIN 8.2 g/dL (6.7-8.2)
--- NOTE | 2020-05-28 21:27 | ED Physician Documentation ---
History of Present Illness - Stated complaint Stated Complaint: HTN - Chief complaint Chief Complaint: Cardiac - History obtained from History obtained from: Patient, EMS - History of Present Illness Timing: Today Pain level max: 0 Pain level now: 0 - Additonal information Additional information: 84-year-old female presents to the emergency department stating that she felt cool and clammy earlier today at around 2 PM. She states she was checking her blood pressure throughout the day and it went higher than usual, up to 190 systolic. She states she was asymptomatic at that time but this has caused her to continue to worry tonight so called 911 and came in for evaluation. No chest pain. No shortness of breath. No palpitations. Has not taken her blood pressure medications tonight. Has not taken her Cardizem either. Does have a history of atrial fibrillation. No fevers. No chills. No numbness. No tingling. No visual changes. No headache. Review of Systems Ten Systems: 10 systems reviewed and negative Constitutional: denies: Fever, Chills Ears: denies: Ear pain Nose: denies: Rhinorrhea / runny nose, Congestion Throat: denies: Sore throat Cardiac: denies: Chest pain / pressure, Palpitations Respiratory: denies: Cough GI: denies: Nausea, Vomiting, Diarrhea Skin: denies: Rash Musculoskeletal: denies: Neck pain, Back pain Neurologic: denies: Focal weakness, Numbness, Confused, Headache PD PAST MEDICAL HISTORY - Past Medical History Cardiovascular: Hypertension, Atrial fibrillation Respiratory: None Neuro: None Endocrine/Autoimmune: None GI: Chronic diarrhea 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 HEENT: Chronic vision loss Psych: None Musculoskeletal: Chronic back pain, Other Derm: Eczema - Past Surgical History Past Surgical History: Yes General: Colonoscopy /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: Hysterectomy HEENT: Cataracts - Present Medications Home Medications: Ambulatory Orders Medication Instructions Recorded Confirmed Acetaminophen [Tylenol] 650 mg PO Q4HR PRN tablet 12/16/17 05/28/20 Apixaban [Eliquis] 5 mg PO BID #0 12/16/17 05/28/20 Losartan [Cozaar] 50 mg PO DAILY #0 12/16/17 05/28/20 atenoloL [Tenormin] 25 mg PO DAILY 05/28/20 05/28/20 diltiaZEM CD [Cardizem Cd] 240 mg PO DAILY 05/28/20 05/28/20 - Allergies Allergies/Adverse Reactions: Allergies Allergy/AdvReac Type Severity Reaction Status Date / Time Penicillins Allergy Severe Respiratory Verified 05/28/20 19:59 Sulfa (Sulfonamide AdvReac Severe Rash Verified 05/28/20 19:59 Antibiotics) contrast dyes Allergy Severe Hives Uncoded 05/28/20 19:59 - Social History Does the pt smoke?: No Smoking Status: Never smoker Does the pt drink ETOH?: Yes Does the pt have substance abuse?: No - Immunizations Immunizations are current?: Yes - POLST Patient has POLST: No POLST Status: Full Code PD ED PE NORMAL - Vitals Vital signs reviewed: Yes - General General: Alert and oriented X 3, No acute distress - HEENT HEENT: PERRL, Moist mucous membranes - Neck Neck: Supple, no meningeal sign - Cardiac Cardiac: RRR, Strong equal pulses - Respiratory Respiratory: No respiratory distress, Clear bilaterally - Abdomen Abdomen: Soft, Non tender, Non distended - Derm Derm: Warm and dry, No rash - Extremities Extremities: No edema, No calf tenderness / cord - Neuro Neuro: Alert and oriented X 3, 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, No motor deficit, No sensory deficit, Normal speech Eye Opening: Spontaneous Motor: Obeys Commands Verbal: Oriented GCS Score: 15 - Psych Psych: Normal mood, Normal affect Results - Vitals Vitals: Vital Signs - 24 hr 05/28/20 05/28/20 19:59 21:42 Temperature 36.9 C 36.1 C L Heart Rate 97 92 Respiratory 20 21 Rate Blood Pressure 179/89 H 160/96 H O2 Saturation 99 98 Oxygen O2 Source Room air - EKG (time done) 2000 Rate: Rate (enter#) (102) Rhythm: Atrial fibrillation [place]: LAD QRS: Normal Ischemia: Non specific changes - Labs Labs: Laboratory Tests 05/28/20 05/28/20 05/28/20 20:52 20:52 20:52 WBC 6.9 RBC 4.01 L Hgb 14.2 Hct 42.3 MCV 105.5 H MCH 35.4 H MCHC 33.6 RDW 12.3 Plt Count 216 MPV 8.9 Neut # (Auto) 5.5 Lymph # (Auto) 0.6 L Lamb # (Auto) 0.7 Eos # (Auto) 0.0 Baso # (Auto) 0.0 Absolute Nucleated RBC 0.00 Nucleated RBC % 0.0 Sodium 137 Potassium 3.5 Chloride 97 L Carbon Dioxide 26 Anion Gap 14.0 H BUN 15 Creatinine 1.0 Estimated GFR (MDRD) 53 L Glucose 119 H Calcium 10.0 Total Bilirubin 0.6 AST 25 ALT 19 Alkaline Phosphatase 81 Troponin I High Sens 10.5 Total Protein 8.2 Albumin 4.7 Globulin 3.5 Albumin/Globulin Ratio 1.3 Lipase 17 L - Rads (name of study) cxr Radiology: Prelim report reviewed, EMP read contemporaneously, See rad report (no acute disease) PD MEDICAL DECISION MAKING - ED course Complexity details: reviewed results, re-evaluated patient, considered differential, d/w patient ED course: Patient is asymptomatic here. Blood pressure decreased on its own. No acute la b abnormalities. No acute EKG abnormalities. She took her normal nighttime medications, heart rate and blood pressure improved. Patient counseled regarding signs and symptoms for which I believe and urgent re-evaluation would be necessary. Patient with good understanding of and agreement to plan and is comfortable going home at this time This document was made in part using voice recognition software. While efforts are made to proofread this document, sound alike and grammatical errors may occur. NIHSS 0 Departure - Departure Disposition: 01 Home, Self Care Clinical Impression: Hypertension Qualifiers: Hypertension type: unspecified Qualified Code(s): I10 - Essential (primary) hypertension Atrial fibrillation Qualifiers: Atrial fibrillation type: unspecified chronic Qualified Code(s): I48.20 - Chronic atrial fibrillation, unspecified; I48.2 - Chronic atrial fibrillation Condition: Good Instructions: ED HTN Established Follow-Up: Kat Pyle MD [Primary Care Provider] - Within 1 week Comments: Continue your current medications at home. Return if you worsen. Follow-up with your doctor for further care.
[2020-05-28 21:46] VITALS: BP 160/96
== END 2020-05-28 22:00 | disposition home or self-care (01) ==
LOC: EDUNIT# → ED 19:52 → SUPCPDRO 19:52 → ED 22:00
DX: I10 Essential (primary) hypertension (principal); I48.20 Chronic atrial fibrillation, unspecified; Z79.01 Long term (current) use of anticoagulants
CPT/HCPCS: 36415; 80053; 83690; 84484; 85025; 93005; 99284

== ENCOUNTER 2020-12-23 08:59 | Outpatient (CLI) | payer MEDICARE, OTHER | END 2020-12-23 09:00 | disposition home or self-care (01) | LOC: DI 08:59 | PROVIDERS: ATTEND Internal Medicine Cardiovascular Disease | DX: I27.20 Pulmonary hypertension, unspecified (principal); I08.1 Rheumatic disorders of both mitral and tricuspid valves | CPT/HCPCS: 93306 ==

== ENCOUNTER 2020-12-23 09:00 | Outpatient (CLI) | payer MEDICARE, OTHER ==
--- NOTE | 2020-12-27 10:24 | Mammography Report ---
BILATERAL DIGITAL SCREENING MAMMOGRAM: 12/23/2020 CLINICAL: Routine screening. Comparison is made to exams dated: 08/19/2019 mammogram, 05/29/2018 mammogram, 11/28/2016 mammogram, 11/14/2015 mammogram, 10/22/2014 mammogram, and 10/16/2013 mammogram - [facility]. There are scattered fibroglandular elements in both breasts. There are benign calcifications in the left breast. No significant masses, calcifications, or other findings are seen in either breast. There has been no significant interval change. IMPRESSION: BENIGN There is no mammographic evidence of malignancy. A 1 year screening mammogram is recommended. This exam was interpreted at Station ID: [id number]. NOTE: For mammograms, a report in lay terms will be sent to the patient. Approximately 15% of breast malignancies will not be visualized mammographically. In the management of a palpable breast mass, a negative mammogram must not discourage biopsy of a clinically suspicious lesion. Electronically Signed By: Diogo Mann M.D. [facility] [place]:12/26/2020 07:38:02 ACR BI-RADS Category 2: Benign Finding(s) 3342F PARENCHYMAL PATTERN: (A) - The breast(s) demonstrate(s) scattered fibroglandular densities. BI-RADS CATEGORY: (2) - 2 RECOMMENDATION: (ANNUAL) - Recommend routine annual screening mammography. [id number] 1 year screening LATERALITY: (B)
== END 2020-12-23 09:01 | disposition home or self-care (01) ==
LOC: DI 09:00
PROVIDERS: ATTEND Internal Medicine
DX: Z12.31 Encounter for screening mammogram for malignant neoplasm of breast (principal)

== ENCOUNTER 2021-11-29 08:00 | Outpatient (CLI) | payer MEDICARE, OTHER ==
[2021-11-29 16:01] LABS: BASOPHILS % (AUTO) 0.7 %; EOSINOPHILS # (AUTO) 0.1 10^3/uL (0.0-0.7); EOSINOPHILS % (AUTO) 1.1 %; HCT - HEMATOCRIT 39.3 % (37.0-47.0); HGB - HEMOGLOBIN 13.2 g/dL (12.0-16.0); LYMPHOCYTES # (AUTO) 1.1 10^3/uL (1.5-3.5); LYMPHOCYTES % (AUTO) 20.4 %; MEAN CORPUSCULAR HEMOGLOBIN 35.1 pg (27.0-31.0); MEAN CORPUSCULAR HGB CONC 33.6 g/dL (32.0-36.0); MEAN CORPUSCULAR VOLUME 104.5 fL (81.0-99.0); MEAN PLATELET VOLUME 9.4 fL (7.9-10.8); MONOCYTES # (AUTO) 0.8 10^3/uL (0.0-1.0); MONOCYTES % (AUTO) 14.9 %; NEUTROPHILS # (AUTO) 3.4 10^3/uL (1.5-6.6); NEUTROPHILS % (AUTO) 62.3 %; PLT - PLATELET COUNT 239 10^3/uL (130-450); RED BLOOD COUNT 3.76 10^6/uL (4.20-5.40); RED CELL DISTRIBUTION WIDTH 13.1 % (12.0-15.0); WHITE BLOOD COUNT 5.4 x10^3/uL (4.8-10.8)
[2021-11-29 16:16] LABS: ALBUMIN 4.4 g/dL (3.2-5.5); ALBUMIN/GLOBULIN RATIO 1.4 (1.0-2.2); ALKALINE PHOSPHATASE 66 IU/L (42-121); ALT ALANINE AMINOTRANSFERASE 19 IU/L (10-60); AST ASPARTATE AMINOTRANSFERASE 22 IU/L (10-42); BILIRUBIN,TOTAL 0.7 mg/dL (0.2-1.0); BUN - BLOOD UREA NITROGEN 20 mg/dL (6-20); CALCIUM 9.6 mg/dL (8.5-10.3); CARBON DIOXIDE - CO2 25 mmol/L (21-32); CHLORIDE 102 mmol/L (101-111); CHOL/HDL RATIO 3.2 (<4.4); CHOLESTEROL 177 mg/dL; CREATININE 0.9 mg/dL (0.4-1.0); GFR - MDRD 60 (>89); GLUCOSE 107 mg/dL (70-100); HDL CHOLESTEROL 56 mg/dL; LDL CHOLESTEROL,CALCULATED 104 mg/dL; LDL/HDL RATIO 1.9 (<4.4); POTASSIUM 4.1 mmol/L (3.5-5.0); SODIUM 138 mmol/L (135-145); TOTAL PROTEIN 7.5 g/dL (6.7-8.2); TRIGLYCERIDES 85 mg/dL; VLDL CHOLESTEROL 17 mg/dL
[2021-11-29 22:12] LABS: ESTIMATED AVERAGE GLUCOSE 111 mg/dL (70-100); HEMOGLOBIN A1c% 5.5 % (4.27-6.07)
== END 2021-11-29 23:59 | disposition home or self-care (01) ==
LOC: LAB.R 08:00
PROVIDERS: ATTEND Internal Medicine
DX: Z00.00 Encounter for general adult medical examination without abnormal findings (principal); I48.91 Unspecified atrial fibrillation; R74.8 Abnormal levels of other serum enzymes; R53.83 Other fatigue; R73.9 Hyperglycemia, unspecified; G47.00 Insomnia, unspecified; D75.89 Other specified diseases of blood and blood-forming organs; J30.2 Other seasonal allergic rhinitis
CPT/HCPCS: 80053; 80061; 83036; 83721; 84443; 85025

== ENCOUNTER 2022-08-08 10:00 | Outpatient (CLI) | payer MEDICARE, OTHER ==
--- NOTE | 2022-08-09 10:55 | Mammography Report ---
BILATERAL DIGITAL DIAGNOSTIC MAMMOGRAM 3D/2D: 08/08/2022 CLINICAL: Intermittent pain in bilateral breasts. Comparison is made to exams dated: 12/23/2020 mammogram, 08/19/2019 mammogram, 05/29/2018 mammogram, mammogram, 11/14/2015 mammogram, and 10/22/2014 mammogram - [facility]. There are scattered areas of fibroglandular density in both breasts (category b / 25%-50% glandular t issue). No significant masses, calcifications, or other findings are seen in either breast. IMPRESSION: NEGATIVE There is no mammographic abnormality seen in either breast to correspond with the diffuse intermitten t pain, however, clinical followup is recommended. There is no mammographic evidence of malignancy. A 1 year screening mammogram is recommended. This exam was interpreted at Station ID: [id number]. NOTE: For mammograms, a report in lay terms will be sent to the patient. Approximately 15% of breast malignancies will not be visualized mammographically. In the management of a palpable breast mass, a negative mammogram must not discourage biopsy of a clinically suspicious lesion. Electronically Signed By: Marva Flores M.D. lk/:08/08/2022 10:37:39 ACR BI-RADS Category 1: Negative 3341F PARENCHYMAL PATTERN: (A) - The breast(s) demonstrate(s) scattered fibroglandular densities. BI-RADS CATEGORY: (1) - 1 Mammogram [id number] 1 year screening LATERALITY: (B)
== END 2022-08-08 10:01 | disposition home or self-care (01) ==
LOC: DI 10:00
PROVIDERS: ATTEND Internal Medicine
DX: N64.4 Mastodynia (principal)

== ENCOUNTER 2023-04-04 10:33 | Outpatient (CLI) | payer MEDICARE, OTHER ==
[2023-04-04 10:44] LABS: HCT - HEMATOCRIT 40.2 % (37.0-47.0); MEAN CORPUSCULAR HGB CONC 32.3 g/dL (32.0-36.0); MEAN CORPUSCULAR VOLUME 105.2 fL (81.0-99.0); RED BLOOD COUNT 3.82 10^6/uL (4.20-5.40); RED CELL DISTRIBUTION WIDTH 13.1 % (12.0-15.0); WHITE BLOOD COUNT 7.3 x10^3/uL (4.8-10.8)
[2023-04-04 11:03] LABS: ALBUMIN 4.4 g/dL (3.2-5.5); ALBUMIN/GLOBULIN RATIO 1.5 (1.0-2.2); BILIRUBIN,TOTAL 0.8 mg/dL (0.2-1.0); CALCIUM 9.7 mg/dL (8.5-10.3); POTASSIUM 4.1 mmol/L (3.5-4.5); TOTAL PROTEIN 7.4 g/dL (6.4-8.9)
== END 2023-04-04 10:34 | disposition home or self-care (01) ==
LOC: LAB 10:33
PROVIDERS: ATTEND Internal Medicine
DX: I48.19 Other persistent atrial fibrillation (principal)
CPT/HCPCS: 36415; 80053; 85027

== ENCOUNTER 2023-07-21 22:05 | Emergency (ER) | payer MEDICARE, OTHER ==
--- NOTE | 2023-07-21 22:29 | ED Physician Documentation ---
PD HPI HEENT - Stated complaint Stated Complaint: NOSE BLEED - Chief complaint Chief Complaint: Heent - History obtained from History obtained from: Patient - Additional information Additional information: HPI from patient. Patient presents with atraumatic right-sided epistaxis, "off and on all day" (per patient). Patient says she has had nosebleeds before but never this persistent/recurrent. Her medication list includes Eliquis for atrial fibrillation. 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 HEENT: Cataracts - Present Medications Home Medications: Ambulatory Orders Medication Instructions Recorded Confirmed Acetaminophen [Tylenol] 650 mg PO Q4HR PRN tablet 12/16/17 05/28/20 Apixaban [Eliquis] 5 mg PO BID #0 12/16/17 05/28/20 Losartan [Cozaar] 50 mg PO DAILY #0 12/16/17 05/28/20 atenoloL [Tenormin] 25 mg PO DAILY 05/28/20 05/28/20 diltiaZEM CD [Cardizem Cd] 240 mg PO DAILY 05/28/20 05/28/20 - Allergies Allergies/Adverse Reactions: Allergies Allergy/AdvReac Type Severity Reaction Status Date / Time Penicillins Allergy Severe Respiratory Verified 07/21/23 22:25 Sulfa (Sulfonamide AdvReac Severe Rash Verified 07/21/23 22:25 Antibiotics) contrast dyes Allergy Severe Hives Uncoded 07/21/23 22:25 - Social History Does the pt smoke?: No Smoking Status: Never smoker Does the pt drink ETOH?: Yes Does the pt have substance abuse?: No - Immunizations Immunizations are current?: Yes - POLST Patient has POLST: No POLST Status: Full Code PD ED PE NORMAL - Vitals Vital signs reviewed: Yes - General General: Alert and oriented X 3, No acute distress, Well developed/nourished - HEENT HEENT: Moist mucous membranes PD ED PE EXPANDED - HEENT HEENT: Right nares epsitaxis (coagulated blood in right nare removed with gordon-tip suction. no active bleeding but there is an isolated 1-2mm diameter vessel raised from the surface of the mucosa in the anterior right nare (septum)) Results - Vitals Vitals: Vital Signs - 24 hr 07/21/23 07/21/23 07/21/23 22:08 22:30 23:00 Temperature 36.2 C L Heart Rate 126 H 104 H 106 H Respiratory 16 18 18 Rate Blood Pressure 147/83 H 172/121 H 165/107 H O2 Saturation 97 99 96 07/22/23 00:30 Temperature Heart Rate 101 H Respiratory 18 Rate Blood Pressure 186/94 H O2 Saturation 97 Oxygen O2 Source Room air Procedures - Epistaxis - Minor Site: Right Preparation: Clots removed, Afrin, Lidocaine, Clamp / pressure applied Treatment: Silver Nitrate Other: Observed - no bleeding, Pt tolerated well PD Medical Decision Making - ED course Complexity details: considered differential, d/w patient ED course: Presents with right-sided epistaxis. After clot removed from the right nare using Gordon tip suction, there is no active bleeding, but there is a solitary raised vessel in the anterior right septum that is highly likely the source of the bleeding. Given that she is taking eliquis, there is a high likelihood the vessel will rebleed and thus I recommend chemical cautery to lower the likelihood or rebleeding and patient agrees with this approach. A cottonball soaked with afrin and viscous lidocaine is placed in the right nare, removed after 20 minutes, and silver nitrate applied to the blood vessel. There was no bleeding during the cautery nor during the subsequent 20 minutes of ED observation. Return precautions reviewed with patient. Departure - Departure Disposition: 01 Home, Self Care Clinical Impression: Epistaxis Condition: Good Instructions: ED Nosebleed Follow-Up: Kat Pyle MD [Primary Care Provider] - Comments: If the nosebleed reoccurs, you can use the nasal spray that we have provided (spray 1 or 2 sprays into the bleeding nare) and then immediately apply the plastic nose clips that we have provided. Leave the nose clips in place for 15 to 20 minutes. You can reapply the nose clips if the bleeding reoccurs when they are removed. However, you can only use the nasal spray twice in a twenty- four hour period (ie twice per day). If you have recurrence of the nosebleed after removing the clamps after having used them 3 times in succession, consider returning to the emergency department. However, if you are having occasional rebleeding (such as every few hours), although you can return to the emergency department at any time you feel you need to be reevaluated, this would be a good sign that the episodes are spreading out in recurrence and I encourage you to continue with the nose clips for 15 to 20 minutes for these episodes. Discharge Date/Time: 07/22/23 01:07
[2023-07-21] MEDS: OXYMETAZOLINE HCL 100 SPRAYS BOTTLE NAS STA (22:39)
[2023-07-21] MEDS: LIDOCAINE VISCOUS 2% 15 ML UDC MM STA (22:39)
[2023-07-22] MEDS: LIDOCAINE VISCOUS 2% 15 ML UDC MM STA (00:05)
[2023-07-22] MEDS: SILVER NITRATE APPLICATOR TOP STA (00:31)
[2023-07-22 00:52] VITALS: BP 186/94; O2SAT 97
== END 2023-07-22 01:07 | disposition home or self-care (01) ==
LOC: ED 22:05
DX: R04.0 Epistaxis (principal); I48.91 Unspecified atrial fibrillation; Z79.01 Long term (current) use of anticoagulants
CPT/HCPCS: 30901; 99283; A9270